=== PATIENT | female | born 1965 | race Caucasian/White ===

== ENCOUNTER 2020-06-29 14:55 | Outpatient (REF) | payer MEDICAID, SELFPAY | END 2020-06-29 14:56 | disposition home or self-care (01) | LOC: HO.LAB 14:55 | PROVIDERS: PCP Internal Medicine; Visit Provider Internal Medicine | DX: Z20.828 Contact with and (suspected) exposure to other viral communicable diseases (principal) | CPT/HCPCS: C9803; U0003 ==

== ENCOUNTER 2020-09-24 17:56 | Emergency (ER) | payer MEDICAID, SELFPAY ==
--- NOTE | 2020-09-24 09:11 | ECG_ITS ---
Test Reason : CHEST WALL PAIN Blood Pressure : / mmHG Vent. Rate : 080 BPM Atrial Rate : 080 BPM P-R Int : 140 ms QRS Dur : 062 ms QT Int : 338 ms P-R-T Axes : 037 051 060 degrees QTc Int : 389 ms Normal sinus rhythm Normal ECG No previous ECGs available Referred By: Pavel Palafox Electronically Signed By:EMILY CUEVAS MD
--- NOTE | 2020-09-24 18:34 | ED.CHESTPAIN ---
HPI - Chest Pain General Chief Complaint: General Medical Stated Complaint: Chest wall pain Time Seen by Provider: 09/24/20 18:34 Source: patient Mode of arrival: ambulatory Limitations: no limitations History of Present Illness HPI narrative: Patient nonsmoker no known risk factor for coronary artery disease noticed pain on the right side of the chest and the upper back for last 2 days after work took ibuprofen and felt better. Pain gets worse on movements and taking deep breaths. No shortness of breath no fever no chills no cough patient does have some some cold symptoms for last few days MD complaint: chest pain Onset (ago): day(s) (2) Timing of current episode: constant Prior episodes: No Onset: during rest Pain location: right chest Pain radiation: none Severity: mild Quality: aching Relieving factors: nothing Exacerbating factors: palpation and movement Related Data Previous Rx's Medication Instructions Recorded tramadol 50 mg PO Q6H PRN #20 tab 09/24/20 Allergies Allergy/AdvReac Type Severity Reaction Status Date / Time No Known Allergies Allergy Verified 09/24/20 18:45 [No Known Allergies*] Review of Systems Review of Systems: Constitutional : No Weight loss, No Fever, No Chills ENT/Mouth : No sore throat, No Rhinorrhea Eyes: No Eye Pain, No Swelling Cardiovascular : +Chest Pain, no palpitations Respiratory : No Cough, No Sputum, no shortness of breath Gastrointestinal : no Nausea, No Vomiting, No Diarrhea, No abdominal Pain, no black stools Genitourinary : No Dysuria, No Urinary Frequency Musculoskeletal : No joint pain, No Myalgias, No Joint Swelling Skin : No Skin Lesions, No rash Neuro : No Weakness, No Numbness, No Dizziness, No Headache Psych : No Anxiety/Panic, No Depression Heme/Lymph: No Bruising, No Lymphadenopathy Endocrine : No Polyuria, No Polydipsia All other systems reviewed and are negative [facility] Past Medical History Surgical History History of Social History Social History Alcohol intake: never Smoking Status: Never smoker Use of substances other than those prescribed or required for medical reasons: No Advance Directives: No Advance Directives Information Provided: Yes Physical Exam Vital Signs: Vital Signs: Last Vital Signs Temp 97.9 F 01/31/21 18:40 Pulse 95 09/24/20 18:40 Resp 18 09/24/20 18:40 BP 117/89 09/24/20 18:40 Pulse Ox 100 09/24/20 18:40 Body Mass Index 21.9 Appearance: Alert. Oriented X3. No acute distress. Eyes: Pupils equal, round and reactive to light. ENT: Pharynx normal. Neck: Normal inspection. Neck supple. CVS: Normal heart rate and rhythm. Pulses normal. Respiratory: No respiratory distress. Breath sounds normal. Tenderness right upper chest and right upper back on palpation Abdomen: Soft and nontender. Bowel sounds are present, no mass palpable, no CVA tenderness Skin: Skin warm and dry. Normal skin color. Normal skin turgor. Extremities: No lower extremity edema. No calf tenderness Neuro: Oriented X 3. No motor deficit. No sensory deficit. Course Course Course Narrative: Patient with atypical chest pain chest x-ray negative COVID negative felt better after Toradol discharge patient home on tramadol for pain likely from musculoskeletal MDM - Chest Pain Differential Diagnosis Differential diagnosis: Likely atypical chest pain Lab Data Labs: Lab Results 09/24/20 Range/Units 18:52 COVID-19 ([facility]) Negative (Negative) COVID-19 Clin Com See Note ECG Data ECG #1: Attestation: I personally reviewed and interpreted this ECG as follows: Interpretation: Normal sinus rhythm heart rate 80 beats per minute normal intervals normal axis no acute ST T wave changes impression normal EKG Discharge Plan Discharge Clinical Impression: Musculoskeletal chest pain Patient Disposition: Home, Self-Care Instructions: Musculoskeletal Pain (ED) Additional Instructions: Take pain medicine as advised. Follow with PCP if pain continues or radiates to the left side Prescriptions: New tramadol 50 mg tablet 50 mg PO Q6H PRN (Reason: pain) Qty: 20 RF: 0
[2020-09-24 18:40] VITALS: BP 117/89; PULSE 95; RESP 18; TEMP 36.6; O2SAT 100; BMI 21.9
--- NOTE | 2020-09-24 18:43 | XR_ITS ---
EXAMINATION: XR CHEST CLINICAL INFORMATION: Right chest pain COMPARISON: None TECHNIQUE: Frontal view of the chest was obtained. FINDINGS: The cardiomediastinal silhouette is within normal limits. The lungs are well expanded. There is no focal consolidation, edema, or effusion. No pneumothorax. No acute osseous abnormality. XR/XR chest 1V IMPRESSION: No evidence of acute process.
[2020-09-24] MEDS: Ketorolac Tromethamine 60 MG/2 ML VIAL IM (18:50)
--- NOTE | 2020-09-24 19:00 | PC.NURSE ---
ekg performed in triage, pt medicated for pain, covid swab performed, cxr performed, panel monitor applied, will continue to monitor.
[2020-09-24 19:14] LABS: COVID-19 Test Negative (Negative)
[2020-09-24 20:02] VITALS: BP 125/69; PULSE 94; RESP 18; TEMP 36.7; O2SAT 98
== END 2020-09-24 20:04 | disposition home or self-care (01) ==
PROVIDERS: Emergency Provider Internal Medicine; PCP Internal Medicine
DX: R07.89 Other chest pain (principal); Z20.822 Contact with and (suspected) exposure to COVID-19; Z79.899 Other long term (current) drug therapy
CPT/HCPCS: 36415; 71045; 87635; 93005; 96372; 99284; J1885

== ENCOUNTER 2021-07-20 12:42 | Emergency (ER) | payer MEDICAID, SELFPAY ==
--- NOTE | ~2021-07-20 | XR_ITS ---
EXAMINATION: RIGHT SHOULDER AND RIGHT RIBS AND CHEST. CLINICAL INFORMATION: Fall. Pain. COMPARISON: None TECHNIQUE: Right shoulder 4 views. Right RIBS and chest 2 views. FINDINGS: CHEST AND RIGHT RIBS: The lungs are hyperinflated but clear. Heart size and pulmonary vascularity Multiple views right ribs reveal no visible right rib fracture or bony abnormality. RIGHT SHOULDER: There is no visible acute fracture, dislocation or subluxation. No bony abnormality. The soft tissues are normal. XR/XR ribs RT min 3V w CXR1V IMPRESSION: Unremarkable chest and right rib exam. Unremarkable right shoulder exam.
--- NOTE | ~2021-07-20 | XR_ITS ---
EXAMINATION: RIGHT SHOULDER AND RIGHT RIBS AND CHEST. CLINICAL INFORMATION: Fall. Pain. COMPARISON: None TECHNIQUE: Right shoulder 4 views. Right RIBS and chest 2 views. FINDINGS: CHEST AND RIGHT RIBS: The lungs are hyperinflated but clear. Heart size and pulmonary vascularity Multiple views right ribs reveal no visible right rib fracture or bony abnormality. RIGHT SHOULDER: There is no visible acute fracture, dislocation or subluxation. No bony abnormality. The soft tissues are normal. XR/XR shoulder RT min 2V IMPRESSION: Unremarkable chest and right rib exam. Unremarkable right shoulder exam.
[2021-07-20 13:12] VITALS: BP 108/76; PULSE 89; RESP 17; TEMP 36.6; O2SAT 99; BMI 21.4
--- NOTE | 2021-07-20 14:20 | ED_ITS ---
HPI - Fall General Chief Complaint: Fall Stated Complaint: fall - chest/head injury Time Seen by Provider: 07/20/21 14:17 Source: patient Mode of arrival: ambulatory Limitations: no limitations History of Present Illness HPI Narrative: 55-year-old female previously healthy here with complaints of right-sided chest wall pain and shoulder pain after a fall on Friday. Patient tells me she slipped and fell falling forward striking her right chest on the ground. She also believes she may have hit her head but there is no loss of consciousness. She also struck her right knee. Patient tells me her primary concern is her chest wall pain. She denies any headache, vision changes, nausea, vomiting. She tells me she is able to ambulate on the knee with no difficulty. No AC therapy no shortness of breath or cough or fever Related Data Previous Rx's Medication Instructions Recorded tramadol 50 mg tablet 50 mg PO Q6H PRN #20 tab 09/24/20 cyclobenzaprine 10 mg tablet 10 mg PO TID PRN #15 tab 07/20/21 naproxen 500 mg tablet,delayed 500 mg PO BID PRN #15 tab 07/20/21 release Allergies Allergy/AdvReac Type Severity Reaction Status Date / Time No Known Allergies Allergy Verified 09/24/20 18:45 [No Known Allergies*] Review of Systems Review of Systems: Yes all other systems are reviewed and are negative Constitutional: Constitutional: Reports no additional constitutional complaints, Denies body ache(s), Denies chills, Denies fever(s), Denies headache(s) and Denies weakness Eyes: Eyes: Reports no additional eye complaints and Denies change in vision ENT: Reports system reviewed and no additional complaints, except as documented, Denies dizziness, Denies headache(s), Denies nasal congestion, Denies nasal discharge and Denies neck pain Cardiovascular: Cardiovascular: Reports no additional cardiovascular complaints, Reports chest pain, Denies leg edema and Denies dyspnea Respiratory: Respiratory: Reports no additional respiratory complaints, Denies cough and Denies dyspnea Gastrointestinal: Gastrointestinal: Reports no additional gastrointestinal complaints, Denies abdominal pain, Denies diarrhea, Denies nausea and Denies vomiting Genitourinary: Genitourinary: Reports no additional female genitourinary complaints and Denies urinary incontinence Musculoskeletal: Musculoskeletal: Reports no additional musculoskeletal complaints, Denies back pain, Denies arthralgias, Denies joint swelling, Denies neck pain, Denies numbness and Denies tingling Integumentary/Breasts: Skin/Breast: Reports system reviewed and no additional complaints, except as docu and Denies rash Neurologic: Reports system reviewed and no additional complaints, except as documented, Denies Abnormal speech present, Denies dizziness, Denies headache(s), Denies numbness, Denies tingling and Denies weakness PMF Past Medical History Attestation statement: The following information was validated with the patient. Source: old records reviewed and nursing notes reviewed Surgical History History of Social History Social History Alcohol intake: never Advance Directives: No Advance Directives Information Provided: Yes Patient : No Physical Exam Vital Signs: Vital Signs: Last Vital Signs Temp 98 F 07/20/21 13:12 Pulse 89 07/20/21 13:12 Resp 17 07/20/21 13:12 BP 108/76 07/20/21 13:12 Pulse Ox 99 07/20/21 13:12 Body Mass Index 21.4 Const: General: cooperative, healthy appearing, comfortable and no acute distress Orientation/consciousness: patient oriented x3 Limitations: no limitations HENMT: Head: Yes normal to inspection Ears: hearing grossly normal bilaterally and TM's normal bilaterally General nose exam: Normal external nose present Face and sinus: Yes normal facial exam Mouth: Normal oral and palatal mucosa present Throat: Yes posterior oropharynx normal, Yes tonsils normal and Yes uvula midline Eyes: General: appearance normal, both eyes and all related structures Pupils: Equal, round and reactive pupils present Neck: Neck: Yes normal visual inspection, Yes full ROM, Yes no lymphadenopathy and Yes no meningeal signs Chest: Chest palpation & inspection: tenderness ( right chest wall and lateral ribs) Resp: Effort & Inspection: normal respiratory effort Auscultation: clear to auscultation bilaterally Cardio: Rate: regular rate Rhythm: regular rhythm Peripheral pulses: Peripheral pulses 2+ throughout GI: Inspection: Yes normal to inspection Palpation (GI): Soft to palpation and nontender Auscultation: normal bowel sounds Back/Spine/Pelvis: Thoracic/Lumbar Spine: thoracic and lumbar spine normal to inspection Skin: General skin exam: no rashes or lesions noted Neuro: General: patient oriented x3, no meningeal signs, no focal motor deficits and normal sensation to monofilament Cranial nerves: Yes CN's II-XII intact bilaterally, Yes Equal, round and reactive pupils present, Yes Bilaterally intact EOM present, Yes Nystagmus not present, Yes Normal facial strength present and Yes Midline tongue present Cognition (Neuro): normal cognition Speech: No Abnormal speech present Gait exam (Neuro): Normal gait present Motor exam (neuro): 5/5 motor strength present throughout Sensory Exam: Normal double simultaneous stimulation for sensation Deep tendon reflexes (DTR's): Right patellar reflex intensity grade: 2+ and Left patellar reflex intensity grade: 2+ Extrem: Other: mild tenderness the right anterior shoulder with full range of motion and no deformity General: Yes normal to inspection and Yes full ROM Course Course Course Narrative: right shoulder and chest wall pain after a mechanical fall on Friday. Will check x-rays. There was a head strike also but there was no loss of consciousness and there was no reports of headache, vision changes or v omiting within normal neurological exam. Imaging deferred 1515- x-ray show no bony abnormality. Likely contusion. Reviewed worrisome signs and symptoms of when to return to the emergency department. Comfortable discharge home. MDM - Fall Medical Records Attestation: I reviewed the patient's medical records. Lab Data Attestation: I reviewed the patient's lab results. Imaging Data Chest x-ray: Attestation: I personally reviewed and interpreted this imaging study as follows: Radiologist's impression: FINDINGS: CHEST AND RIGHT RIBS: The lungs are hyperinflated but clear. Heart size and pulmonary vascularity Multiple views right ribs reveal no visible right rib fracture or bony abnormality. RIGHT SHOULDER: There is no visible acute fracture, dislocation or subluxation. No bony abnormality. The soft tissues are normal. XR/XR ribs RT min 3V w CXR1V IMPRESSION: Unremarkable chest and right rib exam. ? Unremarkable right shoulder exam.? Discharge Plan Discharge Clinical Impression: Chest wall contusion, Contusion of knee, Contusion of head Patient Disposition: Home, Self-Care Instructions: Contusion in Adults (ED), Rib Contusion (ED), Cold Compress or Soak (ED) Additional Instructions: x-ray show no broken bones ice to the area gentle stretching no heavy lifting or bending Prescriptions: New naproxen 500 mg tablet,delayed release (DR/EC) 500 mg PO BID PRN (Reason: pain) Qty: 15 RF: 0 cyclobenzaprine 10 mg tablet 10 mg PO TID PRN (Reason: muscle spasm) Qty: 15 RF: 0 No Action tramadol 50 mg tablet 50 mg PO Q6H PRN (Reason: pain) Qty: 20 RF: 0 Referrals: Teresa Hunt MD [Primary Care Provider] - 2 days Interventions: ED Discharge Assessment Last Done: 07/20/21 14:48 Discharge Date/Time: 07/20/21 14:48
== END 2021-07-20 14:48 | disposition home or self-care (01) ==
PROVIDERS: Emergency Provider Emergency Medicine; PCP Internal Medicine
DX: S20.211A Contusion of right front wall of thorax, initial encounter (principal); S00.93XA Contusion of unspecified part of head, initial encounter; S80.01XA Contusion of right knee, initial encounter; W01.198A Fall on same level from slipping, tripping and stumbling with subsequent striking against other object, initial encounter; Y93.9 Activity, unspecified; Y92.410 Unspecified street and highway as the place of occurrence of the external cause; Y99.9 Unspecified external cause status
CPT/HCPCS: 71101; 73030; 99283

== ENCOUNTER 2022-09-09 10:07 | Outpatient (REF) | payer MEDICAID, SELFPAY ==
--- NOTE | ~2022-09-09 | MM_ITS ---
EXAMINATION: MM SCREENING DIGITAL BREAST TOMOSYNTHESIS, BILATERAL CLINICAL INFORMATION: Screening. Asymptomatic. The lifetime risk of breast cancer based on the Tyrer-Cuzick Model is 6%. COMPARISON: Mammography: 09/01/2019, 08/24/2018, 02/04/2017 TECHNIQUE: Digital breast tomosynthesis is performed in both the craniocaudal and mediolateral oblique views along with computer-aided detection (CAD). Synthesized 2D images are generated from the tomosynthesis. FINDINGS: The breasts are heterogeneously dense, which may obscure small masses (ACR BI-RADS breast composition Category c). Parenchymal pattern is similar to prior studies. No developing density or architectural abnormality. There are no significant masses, abnormal calcifications, or other abnormalities. There are dermal calcifications again noted anterior left breast. The axilla and skin contours are unremarkable. MM/MM tomosynthesis screening BI IMPRESSION: No mammographic evidence of malignancy. ASSESSMENT: BI-RADS 2: Benign RECOMMENDATION: Routine annual mammography screening. This patient's information was entered into a reminder system with a target due date for their next mammogram.
== END 2022-09-09 10:08 | disposition home or self-care (01) ==
LOC: HO.MAMMO 10:07
PROVIDERS: PCP Internal Medicine; Visit Provider Internal Medicine
DX: Z12.31 Encounter for screening mammogram for malignant neoplasm of breast (principal)
CPT/HCPCS: 77063; 77067

== ENCOUNTER → 2022-12-12 14:31 | Outpatient (BNVA) | payer MEDICAID, SELFPAY | PROVIDERS: PCP Internal Medicine; Visit Provider Obstetrics & Gynecology ==

== ENCOUNTER → 2023-02-13 12:53 | Outpatient (BNVA) | payer MEDICAID, SELFPAY | PROVIDERS: PCP Internal Medicine; Visit Provider Obstetrics & Gynecology | DX: R87.618 Other abnormal cytological findings on specimens from cervix uteri (principal); Q51.28 Other and unspecified doubling of uterus | CPT/HCPCS: 99212 ==

== ENCOUNTER 2023-04-14 11:16 | Outpatient (REF) | payer MEDICAID, SELFPAY ==
--- NOTE | ~2023-04-14 | MR_ITS ---
EXAMINATION: MR PELVIS WITHOUT AND WITH CONTRAST CLINICAL INFORMATION: Uterus didelphys. COMPARISON: None available. TECHNIQUE: Sagittal, axial and coronal sequences. FINDINGS: The uterus is anteverted and retroflexed and measures 9 x 3 x 3.6 cm in dimension. There are 2 uterine horns suggestive of a septate-type uterus. The endometrium does not appear thickened, measuring 6 mm on the right and 5 mm on the left. The junctional zone does not appear thickened. There is a 7 x 10 mm low signal T2 lesion in the posterior uterine body likely to the left of midline. This is not appreciated on all sequences but may represent a small fibroid. No other focal uterine lesion is seen. The cervix is normal-appearing. The ovaries are not well visualized. No adnexal mass. No ascites or adenopathy. The bladder is not optimally distended but appears unremarkable. There is a large amount of stool in the colon questionable for constipation. There is signal loss/artifact in the right inguinal region suggestive of previous surgery. MR/MR pelvis wo/w con IMPRESSION: Septate-type uterus. Question small posterior uterine body fibroid.
[2023-04-14] MEDS: gadobutroL 7.5 ML VIAL IVPUSH (12:29)
== END 2023-04-14 11:17 | disposition home or self-care (01) ==
LOC: HO.MRI 11:16
PROVIDERS: PCP Internal Medicine; Visit Provider Obstetrics & Gynecology
DX: Q51.28 Other and unspecified doubling of uterus (principal)
CPT/HCPCS: 72197; A9585

== ENCOUNTER 2023-04-30 10:56 | Outpatient (AMB) | payer MEDICAID, SELFPAY ==
[2023-04-30 11:04] VITALS: BP 94/62; BMI 20.6
--- NOTE | 2023-04-30 11:04 | MHC.OFFVIS ---
Intake Vital Signs 04/30/23 11:04 Height 5 ft 4 in Weight 120 lb BMI 20.6 BP 94/62 Intake Visit Reasons: MRI Follow up Ditch Cleaner Required: Yes Ditch Cleaner Language: Patient Relations Liaison Name: Basilia Vergara Information Interpreted: non-clinical & clinical Rim Roller Setter: Rim Roller Setter Present (Basilia) Allergies No Known Allergies [No Known Allergies*] Allergy (Verified 04/30/23 11:05) Is last menstrual period known: No HPI HPI Comments History of Present Illness Details Presenting for a follow-up MRI of the pelvis which showed the following: The uterus is anteverted and retroflexed and measures 9 x 3 x 3.6 cm in dimension. There are 2 uterine horns suggestive of a septate-type uterus. The endometrium does not appear thickened, measuring 6 mm on the right and 5 mm on the left. The junctional zone does not appear thickened. There is a 7 x 10 mm low signal T2 lesion in the posterior uterine body likely to the left of midline. This is not appreciated on all sequences but may represent a small fibroid. No other focal uterine lesion is seen. The cervix is normal-appearing. The ovaries are not well visualized. No adnexal mass. No ascites or adenopathy. The bladder is not optimally distended but appears unremarkable. There is a large amount of stool in the colon questionable for constipation. There is signal loss/artifact in the right inguinal region suggestive of previous surgery. Results from [facility] for the 2 Pap smears/HPV were received , the 1st co testing is negative, the other one is negative with endometrial cells present on Pap smear [facility] Surgical History History of Hx of tubal ligation Social History Alcohol intake: never Female Reproductive History Menstrual Age of Menarche: 17 control method: permanent sterilization Date of last pap smear: 06/26/16 (negative) Review of Systems Const All systems reviewed & are unremarkable except as noted in HPI and below Reports as per HPI and Reports no additional complaints GI Reports no additional complaints Reports no additional complaints Physical Exam Vital Signs: Last Vital Signs BP 94/62 04/30/23 11:04 BMI result Body Mass Index 20.6 Assessment & Plan Assessment & Plan (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 The patient would like to schedule endometrial biopsy in a week. Instructions given the patient to schedule appointment jody. All questions answered, the patient verbalized understanding. (3) Uterine myoma: Code(s): D25.9 - Leiomyoma of uterus, unspecified Plan Discussed with the patient the findings on pelvic MRI & the risk of myosarcoma; discussed with the patient the options of treatment including expectant management versus hysterectomy; the pros and cons, risks benefits of each approach were discussed with the patient including the fact that in cases of myosarcoma, surgical treatment can lead to early diagnosis and positively affects the prognosis; after further discussion, the patient decided to proceed with expectant management. Will repeat pelvic ultrasound periodically. Instructions given to patient to call in case any of the following occurs: pressure symptoms, abnormal uterine bleeding, pelvic pain; and to schedule a future office follow-up appointment for reassessment and to order a repeat ultrasound . All questions answered, the patient verbalized understanding and agreed with the plan . Coding Level of Care Code Est Pt Level 3 (43502) Diagnoses Uterus didelphys Q51.28 Unexplained endometrial cells on cervical cytology R87.618 Uterine myoma D25.9
== END 2023-04-30 12:32 | disposition home or self-care (01) ==
PROVIDERS: PCP Internal Medicine; Visit Provider Obstetrics & Gynecology
DX: Q51.28 Other and unspecified doubling of uterus (principal); R87.618 Other abnormal cytological findings on specimens from cervix uteri; D25.9 Leiomyoma of uterus, unspecified
CPT/HCPCS: 99213

== ENCOUNTER → 2023-04-30 10:56 | Outpatient (BNVA) | payer MEDICAID, SELFPAY | PROVIDERS: PCP Internal Medicine; Visit Provider Obstetrics & Gynecology | DX: R87.618 Other abnormal cytological findings on specimens from cervix uteri (principal); D25.9 Leiomyoma of uterus, unspecified; Q51.28 Other and unspecified doubling of uterus | CPT/HCPCS: 99212 ==

== ENCOUNTER 2023-05-12 07:43 | Outpatient (AMB) | payer MEDICAID, SELFPAY ==
[2023-05-12 07:47] VITALS: BMI 20.4
--- NOTE | 2023-05-12 07:47 | MHC.OFFVIS ---
Intake Vital Signs 05/12/23 07:47 Height 5 ft 4 in Weight 119 lb 0.794 oz BMI 20.4 Intake Visit Reasons: EMB Food And Beverage Intern Required: Yes Food And Beverage Intern Language: Home Hospice Rn Name: Basilia MCKEON Information Interpreted: non-clinical & clinical Pearl Peller: Pearl Peller Present (Basilia MCKEON) Accompanied by: Self / Same As Patient Allergies No Known Allergies [No Known Allergies*] Allergy (Verified 05/12/23 07:47) Post menopausal: Yes HPI HPI Comments History of Present Illness Details The patient was referred from [facility] for endometrial cells on Pap smear, in [place]/HPV negative. On pelvic exam 2 ? rudimentary cervices were identified Pap smear taken from each one of them , Pap/HPV were negative from 1 of the cervices and the other Pap/HPV was negative with endometrial cells present. MRI was done showed the following: The uterus is anteverted and retroflexed and measures 9 x 3 x 3.6 cm in dimension. There are 2 uterine horns suggestive of a septate-type uterus. The endometrium does not appear thickened, measuring 6 mm on the right and 5 mm on the left. The junctional zone does not appear thickened. There is a 7 x 10 mm low signal T2 lesion in the posterior uterine body likely to the left of midline. This is not appreciated on all sequences but may represent a small fibroid. No other focal uterine lesion is seen. The cervix is normal-appearing. The ovaries are not well visualized. No adnexal mass. No ascites or adenopathy. The bladder is not optimally distended but appears unremarkable. There is a large amount of stool in the colon questionable for constipation. There is signal loss/artifact in the right inguinal region suggestive of previous surgery. [facility] Surgical History History of Hx of tubal ligation Social History Alcohol intake: never Female Reproductive History Menstrual Age of Menarche: 17 Physical Exam Vital Signs: BMI result Body Mass Index 20.4 Speculum Exam - Vagina: other (1small cervix on the L side & smaller tissue possibly 2nd cx on the R side) Bimanual exam- vagina & uterus: uterine size normal Assessment & Plan Assessment & Plan (1) Unexplained endometrial cells on cervical cytology: Code(s): R87.618 - Other abnormal cytological findings on specimens from cervix uteri Plan: Discussed with the patient the finding on pelvic exam and on pelvic MRI showing septate uterus with 2 own, pelvic exam showing ? 1 or 2 abnormal looking cervices. Endometrial cells on Pap smear in menopause is indication for endometrial biopsy to rule out endometrial pathology including endometrial hyperplasia and/or malignancy, since the cervical exam is abnormal with rudimentary tissues at the vaginal, EMB was attempted but was not successful given the abnormal anatomy. Will refer the patient to [facility] for further management. All questions answered the patient verbalized understanding. Instructed the patient to call our office back in case a referral appointment is not scheduled, missed or canceled so that we will assist on rescheduling another appointment, the patient verbalized understanding agreed with the plan. Coding Level of Care Code Est Pt Level 3 (85397) Diagnoses Unexplained endometrial cells on cervical cytology R87.618
== END 2023-05-12 08:16 | disposition home or self-care (01) ==
PROVIDERS: PCP Internal Medicine; Visit Provider Obstetrics & Gynecology
DX: R87.618 Other abnormal cytological findings on specimens from cervix uteri (principal)
CPT/HCPCS: 99213

== ENCOUNTER → 2023-05-12 07:43 | Outpatient (BNVA) | payer MEDICAID, SELFPAY | PROVIDERS: PCP Internal Medicine; Visit Provider Obstetrics & Gynecology | DX: R87.618 Other abnormal cytological findings on specimens from cervix uteri (principal) | CPT/HCPCS: 99212 ==

== ENCOUNTER 2023-09-15 09:57 | Outpatient (REF) | payer MEDICAID, SELFPAY ==
--- NOTE | ~2023-09-15 | MM_ITS ---
EXAMINATION: MM SCREENING DIGITAL BREAST TOMOSYNTHESIS, BILATERAL CLINICAL INFORMATION: Screening. Asymptomatic. COMPARISON: Mammography: This study is compared with prior exams dating back to 2017. TECHNIQUE: Digital breast tomosynthesis is performed in both the craniocaudal and mediolateral oblique views along with computer-aided detection (CAD). Synthesized 2D images are generated from the tomosynthesis. FINDINGS: The breasts are heterogeneously dense, which may obscure small masses (ACR BI-RADS breast composition Category c). In the lateral aspect the deep third of the left breast, there is an asymmetry which warrants additional mammographic and targeted sonographic imaging. Please note that a laterally exaggerated craniocaudal view of the left breast should be added to the diagnostic imaging protocol. In the right breast, there are no significant masses, abnormal calcifications, or other abnormalities. MM/MM tomosynthesis screening BI IMPRESSION: Left breast asymmetry warrants additional mammographic and targeted sonographic evaluation. No mammographic signs of malignancy right breast. ASSESSMENT: BI-RADS BI-RADS 0 - Incomplete: Needs additional Imaging. RECOMMENDATION: 1. Additional views of the left breast 2. Targeted ultrasound if warranted after review of the additional views. 3. Radiology department staff will contact the patient for additional imaging. Additional Imaging required This examination should not preclude the clinical evaluation of a suspicious palpable abnormality. This patient's information was entered into a reminder system with a target due date for their next mammogram.
== END 2023-09-15 09:58 | disposition home or self-care (01) ==
LOC: HO.MAMMO 09:57
PROVIDERS: PCP Internal Medicine; Visit Provider Internal Medicine
DX: Z12.31 Encounter for screening mammogram for malignant neoplasm of breast (principal)
CPT/HCPCS: 77063; 77067

== ENCOUNTER → 2023-09-15 10:00 | Outpatient (BNV) | payer MEDICAID, SELFPAY | PROVIDERS: PCP Internal Medicine; Visit Provider Radiology Diagnostic Radiology | DX: Z12.31 Encounter for screening mammogram for malignant neoplasm of breast (principal) | CPT/HCPCS: 77063; 77067 ==

== ENCOUNTER 2023-10-14 10:01 | Outpatient (REF) | payer MEDICAID, SELFPAY ==
--- NOTE | ~2023-10-14 | MM_ITS ---
EXAMINATION: MM DIAGNOSTIC DIGITAL BREAST TOMOSYNTHESIS, LEFT CLINICAL INFORMATION: The patient is seen for further evaluation of a low laterally located asymmetry in the left breast is noted on screening mammography from 09/15/2023. COMPARISON: Mammography: This study is compared with prior exams dating back to 2017. TECHNIQUE: Digital breast tomosynthesis is performed in both the craniocaudal and mediolateral oblique views along with computer-aided detection (CAD). Synthesized 2D images are generated from the tomosynthesis. A full lateral view of the left breast, a laterally exaggerated CC view and CC spot compression views also obtained FINDINGS: There are scattered areas of fibroglandular density (ACR BI-RADS breast composition Category b). There are no significant masses, abnormal calcifications, or other abnormalities. The asymmetry from the screening mammogram is due to overlap of normal glandular tissue. MM/MM tomosynthesis diagnostic LT IMPRESSION: No mammographic evidence of malignancy. ASSESSMENT: BI-RADS BI-RADS 1 - Negative RECOMMENDATION: 1 year F/U Results were provided to the patient at time of visit by the technologist. This patient's information was entered into a reminder system with a target due date for their next mammogram.
== END 2023-10-14 10:02 | disposition home or self-care (01) ==
LOC: HO.MAMMO 10:01
PROVIDERS: PCP Internal Medicine; Visit Provider Internal Medicine
DX: N64.89 Other specified disorders of breast (principal)
CPT/HCPCS: 77061; 77065

== ENCOUNTER → 2023-10-14 10:30 | Outpatient (BNV) | payer MEDICAID, SELFPAY | PROVIDERS: PCP Internal Medicine; Visit Provider Radiology Diagnostic Radiology | DX: R92.322 Mammographic fibroglandular density, left breast (principal) | CPT/HCPCS: 77061; 77065 ==

== ENCOUNTER 2024-09-20 09:49 | Outpatient (REF) | payer OTHER, SELFPAY ==
--- OUTSIDE RECORDS SUMMARY | 2024-09-20 14:19 | XMS_ITS | Encounter Summary ---
Author Organization [employer] [facility] Address [address] [place] [address] Care Team Providers Care Circulation Crew Leader Name Role Phone Teresa Hunt MD Primary Care Provider [phone] Encounter Details Date Type Department Care Team (Late st Contact Info) Description 09/23/2022 Orders Only [facility] [address] [place] [address] Vicki Martinez RN [address] [place] [address] Social History Tobacco Use Types Packs/Day Years Used Date Smoking Tobacco: Never Assessed Comments Unknown Sex and Gender Information Value Date Recorded Sex Assigned at Female 06/24/2022 10:20 AM EDT Legal Sex Female 10:20 AM EDT Gender Identity Female 06/24/2022 10:20 AM EDT Sexual Orientation Choose not to disclose 2021 10:20 AM EDT COVID-19 Exposure Response Date Recorded In the last 10 days, have wili ferreira been in contact with someone who was confirmed or suspected to have Coronavirus/COVID-19? No / Unsure 09/10/2022 2:01 PM EST documented as of this encounter Plan of Treatment Not on file documented as of this encounter Visit Diagnoses Not on filedocumented in this encounter Care Teams Circulation Crew Leader Relationship Specialty Start Date End Date Teresa Hunt MD [address] [place] [address] PCP - General Internal Medicine 08/25/18 documented as of this encounter
--- OUTSIDE RECORDS SUMMARY | 2024-09-20 14:19 | XMS_ITS | Clinical Summary ---
Author Organization [employer] Address [address] [place] [address] Care Team Providers Care Quality Lab Technician Name Role Phone Teresa Hunt MD Primary Care Provider Allergies No known active allergies Medications pseudoephedrine (Sudafed) 30 MG tablet Take 1 tablet (30 mg) by mouth every 4 (four) hours if needed for congestion for up to 10 days. 30 tablet 4 Active fluticasone (Flonase) 50 MCG/ACT nasal spray Administer 1 spray into each nostril Once per day. 16 g 4 06/03/20 25 Active ibuprofen 600 MG tablet Take 1 tab orally tid prn pain or fevers 90 tablet 4 Active Social History Tobacco Use Types Packs/Day Years Used Date Smoking Tobacco: Never Assessed Comments Unknown Sex and Gender Information Value Date Recorded Sex Assigned at Female 06/24/2022 10:20 AM EDT Legal Sex Female 10:20 AM EDT Gender Identity Female 06/24/2022 10:20 AM EDT Sexual Orientation Choose not to disclose 2021 10:20 AM EDT Last Filed Vital Signs Vital Sign Reading Time Taken Comments Blood Pressure 111/71 06/03/2024 9:46 AM EDT Pulse 70 06/03/2024 9:46 AM EDT Temperature 36.7 ??C (98 ??F) 06/03/2024 9:46 AM EDT Respiratory Rate 16 06/03/2024 9:46 AM EDT Oxygen Saturation 99% 06/03/2024 9:46 AM EDT Inhaled Oxygen Concentration - - Weight 55.8 kg (123 lb) 06/03/2024 9:46 AM EDT Height 162.6 cm (5' 4 ) 06/03/2024 9:46 AM EDT Body Mass Index 21.11 06/03/2024 9:46 AM EDT Plan of Treatment Health Maintenance Due Date Last Done Comments CT Colonography 1967 Colonoscopy 1967 Colorectal Cancer Screening 1967 Depression Screening 1967 FIT DNA/Cologuard 1967 FIT 1967 FOBT 1967 HIV Screening 1967 SDOH Screening 1967 Sigmoidoscopy 1967 Alcohol/Substance Use Screening 1979 Tobacco Screening 1979 Hepatitis C Screening 10/26/1985 Zoster Vaccines (1 of 2) 10/26/2017 DTaP/Tdap/Td Vaccines (2 - Td or Tdap) 02/15/2023 02/15/2013 COVID-19 Vaccine ( - season) 2024 09/04/2021, 01/02/2021, 12/12/2020 Influenza Vaccine (#1) 2024 , 05/23/2014, 05/06/2013 Pap Smear 09/10/2025 09/10/2022, 08/25, 06/25/2016 Mammogram 10/14/2025 10/14/2023, 08/26, 09/09/2022, Additional history exists Cervical Cancer Screening 09/10/2027 HPV/Cotest 09/10/2027 09/10/2022, 08/25, 06/25/2016 RSV Patients and Patients Aged 60 years or older (1 - 1-dose 75+ series) 10/26/2042 Hepatitis B Vaccines Completed 06/25/2016, 01/17/2016, 12/18/2015 HIB Vaccines Aged Out No longer eligi ble based on patient's age to complete this topic HPV Vaccines Aged Out No longer eligi ble based on patient's age to complete this topic Hepatitis A Vaccines Aged Out No long er eligible based on patient's age to complete this topic IPV Vaccines Aged Out No longer eligi ble based on patient's age to complete this topic Meningococcal Vaccine Aged Out No glenroy james eligible based on patient's age to complete this topic Pneumococcal Vaccine: Pediatrics (0 to 5 Years) and At-Risk Patients (6 to 64 Years) Aged Out No longer eligible based on patient's age to complete this topic RSV under 20 months Aged Out No longe r eligible based on patient's age to complete this topic Rotavirus Vaccines Aged Out No longer eligible based on patient's age to complete this topic Procedures Procedure Name Priority Date/Time Associated Diagnosis Comments BI MAMMOGRAM DIAGNOSTIC TOMOSYNTHESIS LEFT Routine 10/14/2023 10:26 AM EST THINPREP PAP AND HPV MRNA E6/E7 Routine 09/10/2022 12:00 AM EST from Last 3 Months or Most Recently Relevant to Health Maintenance Results * BI Mammogram Diagnostic Tomosynthesis Left (10/14/2023 10:26 AM EST) Anatomical Region Laterality Modality Breast Left Mammography 10/14/2023 10:2 6 AM EST Narrative 10/17/2023 2:27 PM EST ? [facility] [place] ? [address] ?[place] [address] ? Mammography Report ? Signed ? Patient: Amira Craig ?MR#: ?? [id number] ? : 1965 ?Acct:[id number] ? Age/Sex: 57 / F ?ADM Date: 02/20/24 ? Loc: HO.MAMMO ? Attending Dr: Teresa Hunt MD ? Ordering Physician: Teresa Hunt MD ?Results: 1 ?? Negative ? Date of Service: 10/14/23 ?Follow Up: 1 Year From Orig ?? inal Mammogram ? Procedure(s): MM tomosynthesis diagnostic LT ?? Accession Number(s): [id number] ? cc: Teresa Hunt MD ? EXAMINATION: ?? MM DIAGNOSTIC DIGITAL BREAST TOMOSYNTHESIS, LEFT ? CLINICAL INFORMATION: ? The patient is seen for further evaluation of a low laterally located ?? asymmetry in the left breast is noted on screening mammography from ?? 09/15/2023. ? COMPARISON: ?? Mammography: This study is compared with prior exams dating back to ?? 2017. ? TECHNIQUE: ?? Digital breast tomosynthesis is performed in both the craniocaudal and ?? mediolateral oblique views along with computer-aided detection (CAD). ?? Synthesized 2D images are generated from the tomosynthesis. A full ?? lateral view of the left breast, a laterally exaggerated CC view and CC ?? spot compression views also obtained ? FINDINGS: ?? There are scattered areas of fibroglandular density (ACR BI-RADS breast ?? composition Category b). ? There are no significant masses, abnormal calcifications, or other ?? abnormalities. ?? The asymmetry from the screening mammogram is due to overlap of normal ?? glandular tissue. ? MM/MM tomosynthesis diagnostic LT ?? IMPRESSION: ?? No mammographic evidence of malignancy. ? ASSESSMENT: ? BI-RADS BI-RADS 1 - Negative ? RECOMMENDATION: ?? 1 year F/U ? Results were provided to the patient at time of visit by the ?? technologist. ? This patient's information was entered into a reminder system with a ?? target due date for their next mammogram. ? Dictated By: ?Vannesa Nuñez MD ? Signed By: ?<Electronically signed by Vannesa Nuñez MD in OV> ? 10/17/23 1423 ? DD/ ? TD/TT: ? Computer Science Teacher: ? Procedure Note Donotuseinterpreter, Image - 10/17/2023 [facility] [address] [place] [address] Mammography Report Signed Patient: Amira CraigMR#: [id number] : 1965Acct:[id number] Age/Sex: 57 / FADM Date: 10/14/23 Loc: HO.MAMMO Attending Dr: Teresa Hunt MD Ordering Physician: Teresa Hunt MDResults: 1 Negative Date of Service: 10/14/23Follow Up: 1 Year From Orig inal Mammogram Procedure(s): MM tomosynthesis diagnostic LT Accession Number(s): [id number] cc: Teresa Hunt MD EXAMINATION: MM DIAGNOSTIC DIGITAL BREAST TOMOSYNTHESIS, LEFT CLINICAL INFORMATION: The patient is seen for further evaluation of a low laterally located asymmetry in the left breast is noted on screening mammography from 09/15/2023. COMPARISON: Mammography: This study is compared with prior exams dating back to 2017. TECHNIQUE: Digital breast tomosynthesis is performed in both the craniocaudal and mediolateral oblique views along with computer-aided detection (CAD). Synthesized 2D images are generated from the tomosynthesis. A full lateral view of the left breast, a laterally exaggerated CC view and CC spot compression views also obtained FINDINGS: There are scattered areas of fibroglandular density (ACR BI-RADS breast composition Category b). There are no significant masses, abnormal calcifications, or other abnormalities. The asymmetry from the screening mammogram is due to overlap of normal glandular tissue. MM/MM tomosynthesis diagnostic LT IMPRESSION: No mammographic evidence of malignancy. ASSESSMENT: BI-RADS BI-RADS 1 - Negative RECOMMENDATION: 1 year F/U Results were provided to the patient at time of visit by the technologist. This patient's information was entered into a reminder system with a target due date for their next mammogram. Dictated By: Vannesa Nuñez MD Signed By: <Electronically signed by Vannesa Nuñez MD in OV> 10/17/23 1423 DD/ 1026 TD/TT: Computer Science Teacher: Teresa Hunt MD IMG BI PROCEDURES Final Res ult * Thinprep PAP and HPV nRNA E6/E7 (09/10/2022 12:00 AM EST) Clinical Information: POSSIBLE UTERINE DIDELPHYS, ANTERI Incentive Targeting-[facility] LMP: NONE GIVEN Incentive Targeting-[facility] Prev. PAP: NONE GIVEN Incentive Targeting-[facility] Prev. BX: NONE GIVEN Incentive Targeting-[facility] SOURCE: None given Incentive Targeting-[id number] Statement Of Adequacy: [employer] Comment: Satisfactory for evaluation. Endocervical/transformation zone component present. Age and/or menstrual status not provided Interpretation/ Result: Negative for intraepithelial lesion or malignancy. [employer] Cytotechnologis t: [employer] Comment: KN, CT(ASCP) CT screening location: [address] ??[address] Review Cytotechnologis t: [facility] Comment: WAC, CT(ASCP) CT screening location: [address] ??[address] (Always Message) [employer] Comment: EXPLANATORY NOTE: The Pap is a screening test for cervical cancer. It is not a diagnostic test and is subject to false negative and false positive results. It is most reliable when a satisfactory sample, regularly obtained, is submitted with relevant clinical findings and history, and when the Pap result is evaluated along with historic and current clinical information. HPV nRNA E6/E7 Not Detected Not Detected Fridge Comment: Methodology: Insurance Agents Supervisor-Mediated Amplification This assay detects E6/E7 viral messenger RNA (mRNA) from 14 high-risk HPV types (16,18,31,33,35,39,45,51,52,56,58,59,66,68). Cervical sources are required for HPV testing. If a vaginal source from a patient who has had a total hysterectomy with removal of cervix was submitted, please contact the testing laboratory for alternative testing options. For additional information, please refer to http://[email or web address].WillCall/faq/LKJ318m8 (This link if provided for information/ educational purposes only.) 09/10/2022 09/11/2022 2:1 7 AM EST Narrative [facility] - 09/18/2022 10:38 AM EST FASTING: UNKNOWN Jaqueline Currie CNM LAB PATHOLOGY ORDERABLES Final Result [facility] [address] [facility], [place] [address] [employer] [facility] [address], ([address]) [place] [address] from Last 3 Months or Most Recently Relevant to Health Maintenance Insurance [employer] Care Teams Quality Lab Technician Relationship Specialty Start Date End Date Teresa Hunt MD [address] [place] [id number] PCP - General Internal Medicine 08/25/18
== END 2024-09-20 09:50 | disposition home or self-care (01) ==
LOC: HO.MAMMO 09:49
PROVIDERS: PCP Internal Medicine; Visit Provider Internal Medicine
DX: Z12.31 Encounter for screening mammogram for malignant neoplasm of breast (principal)
CPT/HCPCS: 77063; 77067

== ENCOUNTER → 2024-09-20 10:00 | Outpatient (BNV) | payer OTHER, SELFPAY | PROVIDERS: PCP Internal Medicine; Visit Provider Internal Medicine | DX: Z12.31 Encounter for screening mammogram for malignant neoplasm of breast (principal) | CPT/HCPCS: 77063; 77067 ==

== ENCOUNTER 2024-12-18 07:51 | Emergency (ER) | payer OTHER, SELFPAY ==
--- NOTE | ~2024-12-18 | MR_ITS ---
CLINICAL HISTORY: Left side weakness Examination: MRI brain without IV contrast Comparison: CT - CT ANGIO HEAD NECK - 12/18/24 09:[address]/SR - CT ANGIO HEAD NECK - 12/18/24 09:28 EDT Findings: DWI/ADC: No restriction. T2*GRE or SWI: No susceptibility effect to suggest blood products. T2 FLAIR: Complete homogeneous suppression. Brain parenchyma demonstrates age-appropriate volume and normal configuration. Ventricles demonstrate a nonobstructive pattern. Basilar cisterns intact. No extra-axial space occupying lesions. No intracranial hemorrhage, midline shift or mass-effect. Corral-white matter junction preserved. No white matter signal abnormalities. The brainstem and cerebellar hemispheres are unremarkable. No tonsillar ectopia. Craniocervical junction and cervical medullary junction intact. The expected venous and arterial flow voids are present. The orbital contents are unremarkable. Sphenoid ethmoid and maxillary sinusitis nonobstructive type. No mastoid effusions are demonstrated. Impression: 1. No restricted diffusion to suggest acute infarct. 2. No recent or remote hemorrhage space-occupying lesions, midline shift or mass effect 3. No white matter signal abnormalities This document has been electronically signed by: Sai Rivera MD on 12/18/2024 12:35:14
--- NOTE | ~2024-12-18 | CT_ITS ---
CLINICAL HISTORY: Left-sided weakness x2 days CT head without contrast. CT angiography head with IV contrast. 3-D postprocessing Comparison: None Findings: CT head showed no space-occupying lesion. No midline shift or mass-effect. Ventricles and sulci are age appropriate. Calvarium intact. Ethmoid sphenoid and maxillary sinusitis No mastoid effusions. Angiographic images of the head: The terminal portion of both internal carotid arteries are patent. The anterior and middle cerebral arteries are patent along their proximal aspects. Posteriorly within the head, the intradural vertebral arteries, basilar artery and emotionally impaired teacher are patent. No aneurysm or arteriovenous shunting lesion is appreciated. Impression: 1. Wide patency of the intracranial arterial circulation. 2. No intracranial aneurysm or AVM. 3. Unremarkable CT enhancement of the brain parenchyma. CT angiography neck with contrast. 3-D postprocessing Comparison: None Findings: Angiographic images of the neck: The bilateral common carotid arteries are patent. Both carotid bulbs are widely patent. Both ICAs follow normal course and caliber through their distal cervical segments. Posteriorly within the neck, the vertebral arteries are left dominant with patent origins. Both vessels follow normal course and caliber through their suboccipital segments. Adenoids are not enlarged. Normal Fossa of Rosenmuller. Epiglottis and palatine tonsils are not enlarged. No subglottic masses. Normal thyroid gland. Osseous structures intact. Lung apices unremarkable. Impression: 1. There is no stenosis of the right common carotid artery bifurcation and proximal right internal carotid artery based on NASCET criteria. 2. There is no stenosis of the left common carotid artery bifurcation and proximal left internal carotid artery based on NASCET criteria. 3. Wide patency of the cervical vertebral arteries. This document has been electronically signed by: Sai Rivera MD on 12/18/2024 10:11:16
--- NOTE | ~2024-12-18 | XR_ITS ---
CLINICAL HISTORY: Left-sided weakness 1 view chest x-ray. Comparison: None Findings: Normal lung volumes. Lungs are clear. No pneumothorax or pleural effusion. Heart size normal. No passive venous congestion. No midline shift or tracheal deviation. No acute fracture. Impression: 1. No acute cardiopulmonary disease. This document has been electronically signed by: Sai Rivera MD on 12/18/2024 09:22:21
[2024-12-18 07:56] VITALS: BP 134/81; PULSE 69; RESP 16; TEMP 36.6; O2SAT 97; BMI 21.4
[2024-12-18 08:00] VITALS: BP 132/81; PULSE 66; RESP 16; TEMP 36.3; O2SAT 100
--- NOTE | 2024-12-18 08:14 | PC.NURSE ---
pt self presented to ED for numbness and tingling in left arm and left side of face with slight left sided facial droop. reports these symptoms initially started two days ago but got worse this morning at approx 0700 while she was driving her car, pt reports she had to have her sister take over driving. pt is not on blood thinners, has no new medication. upon neuro assessment pt demonstrates MAO strength in both hands, slight weakness in left upper extremity, no drift, left facial droop noted - pt GCS 15, alert and oriented, able to follow commands.
--- NOTE | 2024-12-18 08:19 | ECG_ITS ---
Test Reason : LEFT SIDED WEAKNESS Blood Pressure : */* mmHG Vent. Rate : 72 BPM Atrial Rate : 72 BPM P-R Int : 176 ms QRS Dur : 72 ms QT Int : 358 ms P-R-T Axes : 60 52 60 degrees QTcB Int : 392 ms Normal sinus rhythm Normal ECG When compared with ECG of 24-Sep-2020 18:08, No significant change was found Referred By: Amor Junior Electronically Signed By: BERNABE RAIN
--- NOTE | 2024-12-18 08:20 | ED_ITS ---
HPI - Neuro Symptoms/Deficit General Chief Complaint: Neuro Symptoms/Deficit Stated Complaint: left side numbness twisted facial feeling Time Seen by Provider: 12/18/24 08:11 Source: patient and family Mode of arrival: ambulatory Limitations: no limitations History of Present Illness ED Provider: DR. Junior HPI Narrative: 59-year-old female came in for evaluation of left-sided body numbness, left facial weakness started 2 days ago patient did not seek immediate medical attention because she thought she had allergic reaction. Patient is not on AC medication, no headache, no blurry vision. No hormonal therapy, no contraceptive pills, no other medical problem Related Data Home Medications ?Medication ?Instructions ?Recorded ?Confirmed cholecalciferol (vitamin D3) 10 10 mcg PO DAILY 12/12/22 mcg (400 unit) capsule Previous Rx's ?Medication ?Instructions ?Recorded tramadol 50 mg tablet 50 mg PO Q6H PRN pain #20 tabs 09/24/20 cyclobenzaprine 10 mg tablet 10 mg PO TID PRN muscle spasm #15 07/20/21 tabs naproxen 500 mg tablet,delayed 500 mg PO BID PRN pain #15 tabs 07/20/21 release prednisone 20 mg tablet 20 mg PO BID #10 tabs 12/18/24 valacyclovir 1 gram tablet 1,000 mg PO TID #21 tabs 12/18/24 (Valtrex) Allergies Allergy/AdvReac Type Severity Reaction Status Date / Time No Known Allergies Allergy Verified 12/18/24 07:58 [No Known Allergies*] Review of Systems 2 Review of Systems: All other systems are reviewed and are negative Constitutional: Reports as per HPI and Reports no additional constitutional complaints Eyes: Reports as per HPI and Reports no additional eye complaints Reports system reviewed and no additional complaints, except as documented Cardiovascular: Reports as per HPI and Reports no additional cardiovascular complaints Respiratory: Reports as per HPI and Reports no additional respiratory complaints Gastrointestinal: Reports as per HPI and Reports no additional gastrointestinal complaints Genitourinary: Reports no additional female genitourinary complaints Musculoskeletal: Reports no additional musculoskeletal complaints Skin/Breast: Reports system reviewed and no additional complaints, except as docu Psychiatric: Reports no additional psychiatric complaints Endocrine: Reports no additional endocrine complaints Hematologic/Lymphatic: Reports no additional hematologic/lymphatic complaints Allergic/Immunologic: Reports no additional allergic/immunologic complaints Reports system reviewed and no additional complaints, except as documented and Reports Abnormal speech present PMFSH Past Medical History Surgical History Hx of tubal ligation History of Social History Social History Alcohol intake: never Smoked in Last 30 Days: No Use of substances other than those prescribed or required for medical reasons: No Advance Directives: No Advance Directives Information Provided: No Patient : No Physical Exam 2 Vital Signs: Vital Signs: Last Vital Signs Temp 97.3 F 12/18/24 12:00 Pulse 64 12/18/24 12:00 Resp 14 12/18/24 12:00 BP 120/74 12/18/24 12:00 Pulse Ox 99 12/18/24 12:00 O2 Del Method Room Air 12/18/24 12:00 BMI result Body Mass Index 21.4 Vital signs have been reviewed and appear to be correct. Blood pressure elevated. Heart rate normal. Respiratory rate normal. Temperature normal. Oxygen saturation normal. Appearance: Alert. Oriented X3. No acute distress. Head: Normal external exam. Normocephalic. Atraumatic. No Porter signs noted. No raccoon eyes noted Eyes: PERRLA. EOMI. Conjunctiva and sclera normal. Eyelids normal. ENT: TM's Normal. Pharynx normal. Uvula midline. Moist mucous membranes. No trismus noted. No drooling noted. No muffled voice noted. Neck: Normal inspection. Neck supple. FROM. No adenopathy. Thyroid Normal. No meningeal signs. No neck mass noted. CVS: Normal heart rate and rhythm. Heart sound normal. No murmurs noted. Pulses normal throughout. Respiratory: No respiratory distress. Painless inspiration. Breath sounds normal. No wheezes/rales/rhonchi noted. Chest nontender. No accessory muscle usage noted or decreased air movement noted. Abdomen: Soft and nontender. Bowel sounds normal in all 4 quadrants. No distention noted. No organomegaly noted. No visible injury noted. Back: No CVA tenderness. Full range of motion noted. Skin: Skin warm and dry. Normal skin color. Normal skin turgor. No rashes/lesions/lacerations noted. Extremities: No lower extremity edema. Extremities exhibit normal range of motion. Extremities nontender. Neuro: Mental status: Normal attention, orientation, memory, and affect. Cranial nerves: Pupils are equal, round and reactive to light, EOMI, visual sierra are fall, face is symmetric, facial sensations decreased on the left side, forehead and lower facial muscle is affected. Motor examination normal muscle tone, strength to 4 extremities. DTR are +2, planter's are flexor. Sensory exam; normal coordination, no ataxia, gait stable, increased numbness to the left side of the body. Cerebellar exam: Mxxfyo-va-gkun and akkn-qc-hdmu is normal. Extrapyramidal system: No tremors, no rigidity with normal facial expressions. 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 Will check for Lyme disease. Elevated liver enzyme patient was instructed to follow-up with PCP. Time: 13:10 Medications Administered Discontinued Medications Generic Name Dose Route Start Last Admin Trade Name Freq PRN Reason Stop Dose Admin Iohexol 100 ml 12/18/24 09:39 12/18/24 09:40 Iohexol 350 Mg/Ml 100 Ml Infus..Btl IV 12/18/24 09:40 65 ml ONCE ONE Administration Medical Decision Making Differential Diagnosis Differential Diagnoses: The differential diagnosis associated with the presentation includes (Hemorrhagic stroke, ischemic stroke, Quijano's palsy, electrolyte derangement, severe anemia.) Admission/Observation Consideration of admission/observation: Escalation of care including admission/observation considered Lab Data MDM Lab Attestation statement: I reviewed the patient's lab results. 12/18/24 08:27 12/18/24 08:27 Labs: Lab Results 12/18/24 12/18/24 Range/Units 08:27 08:50 WBC 4.1 L (4.8-10.8) X10*3/uL RBC 4.80 (4.20-5.50) X10*6/uL Hgb 14.4 (12.0-16.0) g/dl Hct 41.9 (37.0-47.0) % MCV 87.3 (80.0-98.0) fL MCH 30.0 (27.0-33.0) pg MCHC 34.4 (31.0-35.0) g/dl RDW 12.2 (11.0-16.0) % Plt Count 219 (160-400) X10*3/uL MPV 9.8 (9.4-12.3) fL Immature Gran % (Auto) 0.2 (0.0-0.4) % Neut % (Auto) 58.7 (45-73) % Lymph % (Auto) 24.8 (20-40) % Scurry % (Auto) 7.8 (2-11) % Eos % (Auto) 7.8 H (0-4) % Baso % (Auto) 0.7 (0-2) % Lymph # (Auto) 1.0 L (1.2-4.9) X10*3/uL Scurry # (Auto) 0.3 (0.1-1.2) X10*3/uL Eos # (Auto) 0.3 (0.0-0.4) X10*3/uL Baso # (Auto) 0.0 (0.0-0.2) X10*3/uL Abs Immat Gran (auto) 0.01 (0.00-0.03) X10*3/uL Absolute Neuts (auto) 2.4 (2.0-8.3) x10*3/uL Absolute Nucleated RBC 0.000 (0.0-0.012) X10*3/uL Nucleated RBC % (auto) 0.0 (0.0-0.2) /100WBC PT 11.5 (10.9-12.4) SEC INR 1.0 (0.9-1.1) Sodium 140 (135-145) mmol/L Potassium 4.2 (3.3-5.1) mmol/L Chloride 107 (96-108) mmol/L Carbon Dioxide 27 (22-29) mmol/L Anion Gap 10 L (12-20) BUN 15 (9-16) mg/dL Creatinine 0.70 (0.5-1.4) mg/dL Estim Creat Clear Calc 76.5 Estimated GFR > 60 Random Glucose 100 (60-115) mg/dL Calcium 9.5 (8.4-10.2) mg/dL Total Bilirubin 1.2 H (0.0-1.0) mg/dL Direct Bilirubin 0.3 (0.0-0.5) mg/dL AST 44 H (5-31) U/L ALT 166 H (0-31) U/L Alkaline Phosphatase 121 H (39-117) U/L Troponin I High Sens < 2.7 (<3.5-17.0) ng/L B-Natriuretic Peptide < 10 (<100) pg/mL Total Protein 7.5 (6.5-8.0) g/dL Albumin 4.2 (3.5-5.0) g/dL Lipase 36 (8-78) U/L Urine Color Yellow Urine Appearance Clear Urine pH 6.5 (5.0-9.0) Ur Specific [place] <= 1.005 (1.005-1.025) Urine Protein Negative (Neg-Trace) mg/dL Urine Glucose (UA) Negative (Negative) mg/dL Urine Ketones Negative (Negative) mg/dL Urine Blood Negative (Negative) Urine Nitrite Negative (Negative) Ur Leukocyte Esterase Moderate (2+) H (Negative) Urine RBC 0-2 (0-2) /HPF Urine WBC 0-5 (0-5) /HPF Ur Squamous Epith Cells 0-2 (0-2) /HPF Urine Bacteria None Seen (None Seen) Hyaline Casts 0-2 (0-2) /LPF Influenza Type A (PCR) NEGATIVE (Negative) Influenza Type B (PCR) NEGATIVE (Negative) RSV RNA Qual (PCR) NEGATIVE (Negative) SARS-CoV-2 RNA (RT-PCR) NEGATIVE (Negative) NIH Stroke Scale Time: 08:26 Level of Consciousness: Alert Level of Consciousness Questions: Answers both questions correctly Level of Consciousness Commands: Performs both tasks correctly Best Gaze: Normal Visual: No visual loss Facial Palsy: Minor paralyis Motor Arm (Right): No drift Motor Arm (Left): No drift Motor Leg (Right): No drift Motor Leg (Left): No drift Limb Ataxia: Absent Sensory: Mild to moderate sensory loss Best Language: No aphasia Dysarthia: Normal Extinction and Inattention: No abnormality Score: 2 Discharge Plan Discharge Clinical Impression: Left-sided Quijano's palsy, Elevated liver enzymes Patient Disposition: Home, Self-Care Instructions: Quijano Palsy (ED) Prescriptions: New valacyclovir [Valtrex] 1 gram tablet 1,000 mg PO TID Qty: 21 0RF prednisone 20 mg tablet 20 mg PO BID Qty: 10 0RF No Action tramadol 50 mg tablet 50 mg PO Q6H PRN (Reason: pain) Qty: 20 0RF naproxen 500 mg tablet,delayed release (DR/EC) 500 mg PO BID PRN (Reason: pain) Qty: 15 0RF cyclobenzaprine 10 mg tablet 10 mg PO TID PRN (Reason: muscle spasm) Qty: 15 0RF cholecalciferol (vitamin D3) 10 mcg (400 unit) capsule 10 mcg PO DAILY Referrals: Teresa Hunt MD [Primary Care Provider] - Print Language: Tamazight
--- OUTSIDE RECORDS SUMMARY | 2024-12-18 08:23 | XMS_ITS | Clinical Summary ---
Author Organization [employer] Address [address] [place] [address] Care Team Providers Care Design Assistant Name Role Phone Teresa Hunt MD Primary [...] pain or fevers 90 tablet 4 Active Encounters Date Type Department Care Team Description 09/20/2024 Orders Only [facility] [address] [place] [address] Teresa Hunt MD from Last 3 Months Social History Tobacco Use Types Packs/Day Years [...] Tobacco Screening 1979 Hepatitis C Screening 10/26/1985 Pneumococcal Vaccine: 50+ Years (1 of 1 - PCV) 10/26/2017 Zoster Vaccines (1 of 2) 10/26/2017 DTaP/Tdap/Td Vaccines (2 - Td or Tdap) 02/15/2023 02/15/2013 COVID-19 Vaccine ( - season) 2024 09/04/2021, 01/02/2021, 12/12/2020 Influenza Vaccine (#1) 2024 , 05/23/2014, 05/06/2013 Pap Smear 09/10/2025 09/10/2022, 08/25, 06/25/2016 Mammogram 09/20/2026 09/20/2024, 02/, 09/15/2023, Additional history exists Cervical Cancer Screening 09/10/2027 [...] Priority Date/Time Associated Diagnosis Comments BI MAMMOGRAM SCREENING TOMOSYNTHESIS BILATERAL Routine 09/20/2024 10:00 AM EST THINPREP PAP AND HPV MRNA E6/E7 Routine 09/10/2022 12:00 AM EST from Last 3 Months or Most Recently Relevant to Health Maintenance Results * BI Mammogram Screening Tomosynthesis Bilateral (09/20/2024 10:00 AM EST) Anatomical Region Laterality Modality Breast Bilateral Mammography 09/20/2024 10:0 0 AM EST Narrative 09/28/2024 3:42 PM EST ? [facility] ? [address] ?[place] [id number] ? Mammography Report ? Signed ? Patient: Fina Keene,Modestoseling ?MR#: ?? [id number] ? : 1965 ?Acct:[id number] ? Age/Sex: 58 / F ?ADM Date: 01/27/25 ? Loc: HO.MAMMO ? Attending Dr: Teresa Hunt MD ? Ordering Physician: Teresa Hunt MD ?Results: 1 ?? Negative ? Date of Service: 09/20/24 ?Follow Up: 1 Year From Orig ?? inal Mammogram ? Procedure(s): MM tomosynthesis screening BI ?? Accession Number(s): [id number] ? cc: Teresa Hunt MD ? EXAMINATION: ?? MM SCREENING DIGITAL BREAST TOMOSYNTHESIS, BILATERAL ? CLINICAL INFORMATION: ? Screening. Asymptomatic. ? COMPARISON: ?? Mammography: Comparison is made with available priors ? TECHNIQUE: ?? Digital breast mammography with tomosynthesis is performed in both the ?? craniocaudal and mediolateral oblique views along with computer-aided ?? detection (CAD). ? FINDINGS: ?? The breasts are heterogeneously dense, which may obscure small masses ?? (ACR BI-RADS breast composition Category c). ? There are no significant masses, abnormal calcifications, or other ?? abnormalities. ? MM/MM tomosynthesis screening BI ?? IMPRESSION: ?? No mammographic evidence of malignancy. ? ASSESSMENT: ? BI-RADS BI-RADS 1 - Negative ? RECOMMENDATION: ?? Routine annual mammography screening. ? 1 year F/U ? This examination should not preclude the clinical evaluation of a ?? suspicious palpable abnormality. ? This patient's information was entered into a reminder system with a ?? target due date for their next mammogram. ? Electronically signed by: ??Alyssa Fabian DO ??09/28/2024 03:39 PM EST ?? RP ? Dictated By: ?Alyssa Fabian DO ? Signed By: ?<Electronically signed by Alyssa Fabian, DO in OV> ? 09/28/24 1539 ? DD/ 1000 ? TD/TT: 09/20/24 1020 ? Photonics Engineer: ? Procedure Note [facility]bo [facility] [address] [place] [address] Mammography Report Signed Patient: Estevan Craig#: [id number] : 1965Acct:[id number] Age/Sex: 58 / FADM Date: 09/20/24 Loc: HO.MAMMO Attending Dr: Teresa Hunt MD Ordering Physician: Teresa Hunt MDResults: 1 Negative Date of Service: 09/20/24Follow Up: 1 Year From Orig inal Mammogram Procedure(s): MM tomosynthesis screening BI Accession Number(s): [id number] cc: Teresa Hunt MD EXAMINATION: MM SCREENING DIGITAL BREAST TOMOSYNTHESIS, BILATERAL CLINICAL INFORMATION: Screening. Asymptomatic. COMPARISON: Mammography: Comparison is made with available priors TECHNIQUE: Digital breast mammography with tomosynthesis is performed in both the craniocaudal and mediolateral oblique views along with computer-aided detection (CAD). FINDINGS: The breasts are heterogeneously dense, which may obscure small masses (ACR BI-RADS breast composition Category c). There are no significant masses, abnormal calcifications, or other abnormalities. MM/MM tomosynthesis screening BI IMPRESSION: No mammographic evidence of malignancy. ASSESSMENT: BI-RADS BI-RADS 1 - Negative RECOMMENDATION: Routine annual mammography screening. 1 year F/U This examination should not preclude the clinical evaluation of a suspicious palpable abnormality. This patient's information was entered into a reminder system with a target due date for their next mammogram. Electronically signed by: Alyssa Fabian DO 09/28/2024 03:39 PM EST Dictated By: Alyssa Fabian DO Signed By: <Electronically signed by Alyssa Fabian DO in OV> 09/28/24 1539 DD/ 1000 TD/TT: 09/20/24 1020 Photonics Engineer: us Teresa Hunt MD IMG BI PROCEDURES Final Res ult * Thinprep PAP and HPV nRNA E6/E7 (09/10/2022 12:00 AM EST) Clinical Information: POSSIBLE UTERINE DIDELPHYS, ANTERI Neurovancet LMP: NONE GIVEN [facility] Prev. PAP: NONE GIVEN [facility] Prev. BX: NONE GIVEN [facility] SOURCE: None given Neurovancet Statement Of Adequacy: Neurovancet Comment: Satisfactory for evaluation. Endocervical/transformation zone component present. Age and/or menstrual status not provided Interpretation/ Result: Negative for intraepithelial lesion or malignancy. [employer]olog[employer]: Neurovancet Comment: KN, CT(ASCP) CT screening location: [address] ??[id number] Review Cytotechnologis t: [employer] [place] [employer] Comment: WAC, CT(ASCP) CT screening location: [address] ??[address] (Always Message) Neurovancet Comment: EXPLANATORY NOTE: The Pap is a [...] HPV nRNA E6/E7 Not Detected Not Detected [facility] Comment: Methodology: Residential Plumber-Mediated Amplification This assay detects E6/E7 viral messenger RNA (mRNA) from 14 high-risk HPV types (16,18,31,33,35,39,45,51,52,56,58,59,66,68). Cervical sources are required for HPV testing. If a vaginal source from a patient who has had a total hysterectomy with removal of cervix was submitted, please contact the testing laboratory for alternative testing options. For additional information, please refer to http://education.ShipBob/faq/PCC517p3 (This link if provided for information/ educational purposes only.) 09/10/2022 09/11/2022 2:1 7 AM EST Narrative [facility] - 09/18/2022 10:38 AM EST FASTING: UNKNOWN Jaqueline Currie CNM LAB PATHOLOGY ORDERABLES Final Result [facility] [address] [place] [address] [employer] [address], ([address]) [place] [address] from Last 3 Months or Most Recently Relevant to Health Maintenance Insurance [employer] Care Teams Design Assistant Relationship Specialty Start Date End Date Teresa Hunt MD [address] [place] [address] PCP - General Internal Medicine 08/25/18
--- OUTSIDE RECORDS SUMMARY | 2024-12-18 08:23 | XMS_ITS | Encounter Summary ---
Author Organization [facility] Address [address] [place] [address] Care Team Providers Care Encapsulator Name Role Phone Teresa Hunt MD Primary Care Provider [phone] Encounter Details Date Type Department Care Team (Late st Contact Info) Description 09/23/2022 Orders Only [facility] [address] [place] [address] Vicki Martinez RN [address] [place] [address] Social History Tobacco Use Types Packs/Day Years [...] on filedocumented in this encounter Care Teams Encapsulator Relationship Specialty Start Date End Date Teresa Hunt MD [address] [place] [address] PCP - General Internal Medicine 08/25/18 documented as of this encounter
[2024-12-18 08:32] LABS: MANUAL DIFF FLAG NO
[2024-12-18 08:34] LABS: Basophils Percent Auto 0.7 % (0-2); Eosinophils Absolute Auto 0.3 X10*3/uL (0.0-0.4); Eosinophils Percent Auto 7.8 % (0-4); Hematocrit 41.9 % (37.0-47.0); Hemoglobin 14.4 g/dl (12.0-16.0); Imm Gran Abs Auto 0.01 X10*3/uL (0.00-0.03); Imm Gran Pct Auto 0.2 % (0.0-0.4); Lymphocytes Percent Auto 24.8 % (20-40); Mean Corpuscular HGB Conc 34.4 g/dl (31.0-35.0); Mean Corpuscular Volume 87.3 fL (80.0-98.0); Mean Platelet Volume 9.8 fL (9.4-12.3); Monocytes Absolute Auto 0.3 X10*3/uL (0.1-1.2); Monocytes Percent Auto 7.8 % (2-11); Neutrophils Absolute Auto 2.4 x10*3/uL (2.0-8.3); Neutrophils Percent Auto 58.7 % (45-73); Platelet Count 219 X10*3/uL (160-400); Red Cell Distribution Width 12.2 % (11.0-16.0); White Blood Count 4.1 X10*3/uL (4.8-10.8)
[2024-12-18 08:47] LABS: Prothrombin Time 11.5 SEC (10.9-12.4)
[2024-12-18 08:53] LABS: B Type Natriuretic Peptide < 10 pg/mL (<100)
[2024-12-18 09:05] LABS: Appearance Urine Clear; Color Urine Yellow; Glucose Urine UA Negative (Negative); Leukocyte Esterase Urine Moderate (2+) (Negative); Nitrite Urine Negative (Negative); PH 6.5 (5.0-9.0); Specific Gravity - Urine <= 1.005 (1.005-1.025); UMIC TRIGGER UACC YES; Urine Blood Negative (Negative); Urine Ketones Negative (Negative); Urine Protein Negative (Neg-Trace)
[2024-12-18 09:06] LABS: Alanine Aminotransferase 166 U/L (0-31); Albumin Level 4.2 g/dL (3.5-5.0); Alkaline Phosphatase 121 U/L (39-117); Anion Gap 10 (12-20); Aspartate Amino Transferase 44 U/L (5-31); Bilirubin Direct 0.3 mg/dL (0.0-0.5); Bilirubin Total 1.2 mg/dL (0.0-1.0); Blood Urea Nitrogen 15 mg/dL (9-16); Calcium 9.5 mg/dL (8.4-10.2); Carbon Dioxide 27 mmol/L (22-29); Chloride 107 mmol/L (96-108); Creatinine Clr Calc Pharmacy 76.5; Estimated Glomerular Filt Rate > 60; Glucose Random 100 mg/dL (60-115); Lipase 36 U/L (8-78); Potassium 4.2 mmol/L (3.3-5.1); Sodium 140 mmol/L (135-145); Total Protein 7.5 g/dL (6.5-8.0)
[2024-12-18 09:16] LABS: Influenza A PCR NEGATIVE (Negative); Influenza B PCR NEGATIVE (Negative); Resp Syncy Virus RNA Qual PCR NEGATIVE (Negative); SARS COV2 PCR INHOUSE NEGATIVE (Negative)
[2024-12-18 09:21] LABS: Bacteria Urine None Seen (None Seen); Hyaline Casts Urine 0-2 /LPF (0-2); RBC Urine 0-2 /HPF (0-2); Squamous Epithelial Cell Urine 0-2 /HPF (0-2); UACC Culture Trigger YES; WBC Urine 0-5 /HPF (0-5)
[2024-12-18 09:21] LABS: Troponin-I High Sensitivity < 2.7 ng/L (<3.5-17.0)
[2024-12-18] MEDS: iohexoL 350 MG/ML 100 ML INFUS..BTL IV (09:40)
[2024-12-18 10:00] VITALS: BP 119/71; PULSE 60; RESP 16; TEMP 36.7; O2SAT 98
--- NOTE | 2024-12-18 11:19 | PC.NURSE ---
pt to go to MRI at this time
[2024-12-18 12:00] VITALS: BP 120/74; PULSE 64; RESP 14; TEMP 36.3; O2SAT 99
--- NOTE | 2024-12-18 12:21 | PC.NURSE ---
pt has returned from MRI at this time
[2024-12-18] MEDS: predniSONE 20 MG TABLET 40 MG PO (13:09)
[2024-12-18 13:28] VITALS: BP 122/70; PULSE 60; RESP 18; TEMP 36.6; O2SAT 100
[2024-12-20 21:38] LABS: Lyme Abs Screen <0.90 index
== END 2024-12-18 13:29 | disposition home or self-care (01) ==
PROVIDERS: Emergency Provider Emergency Medicine; PCP Internal Medicine
DX: G51.0 Bell's palsy (principal); R20.0 Anesthesia of skin; R53.1 Weakness; R29.702 NIHSS score 2; R79.89 Other specified abnormal findings of blood chemistry; Z79.899 Other long term (current) drug therapy; Z03.818 Encounter for observation for suspected exposure to other biological agents ruled out
CPT/HCPCS: 0241U; 36415; 70496; 70498; 70551; 71045; 80048; 80076; 81001; 81003; 83690; 83880; 84484; 85025; 85610; 86617; 86618; 87086; 93005; 99285; Q9967

== ENCOUNTER → 2024-12-18 08:19 | Outpatient (BNV) | payer OTHER, SELFPAY | PROVIDERS: Emergency Provider Emergency Medicine; PCP Internal Medicine; Visit Provider Radiology Diagnostic Radiology | DX: R53.1 Weakness (principal) | CPT/HCPCS: 70496; 70498; 70551; 71045 ==

== ENCOUNTER → 2024-12-18 08:19 | Outpatient (BNV) | payer OTHER, SELFPAY | PROVIDERS: Emergency Provider Emergency Medicine; PCP Internal Medicine; Visit Provider Internal Medicine | DX: R53.1 Weakness (principal) | CPT/HCPCS: 93010 ==

== ENCOUNTER 2025-01-28 09:07 | Outpatient (RCR) | payer OTHER, SELFPAY | END 2025-03-09 13:06 | disposition home or self-care (01) | LOC: HO.PT 09:07 | PROVIDERS: PCP Internal Medicine; Visit Provider Internal Medicine | DX: M62.81 Muscle weakness (generalized) (principal) | CPT/HCPCS: 97112; 97161 ==

== ENCOUNTER 2025-05-24 09:19 | Outpatient (REF) | payer OTHER, SELFPAY ==
--- OUTSIDE RECORDS SUMMARY | 2025-05-20 14:00 | XMS_ITS | Encounter Summary ---
Author Organization [employer] Address [address] [place] [address] [facility] [place] [address] Care Team Providers Care Anesthesia Assistant Name Role Phone Teresa Hunt MD Primary Care Provider [phone] Reason for Referral * Consultation (Routine) - Authorized Specialty Diagnoses / Procedures Referred By Contedy t Referred To Contact Gastroenterology Diagnoses Screening for colon cancer Teresa Hunt MD [address] [place] [address] Phone: tel: fax: Melani Mims MD [address] [place] [address] Phone: tel: fax: Referral ID Status Reason Start Date Expiration Date Visits Requested Visits Authorized [id number] Authorized Specialty Services Required 05/20/2025 05/20/2026 1 1 Reason for Visit * Reason Comments Annual Exam Encounter Details Date Type Department Care Team (Late st Contact Info) Description 05/20/2025 2:00 PM EDT Office Visit [facility] MED & PEDS [address], [place] [phone] Teresa Hunt MD [address], [place] [phone] Annual physical exam (Primary Dx); Quijano's palsy; Encounter for immunization; Screening for colon cancer Social History Tobacco Use Types Packs/Day Years Used Date Smoking Tobacco: Never Passive Smoke Exposure: Never Smokeless Tobacco: Never Tobacco Cessation:Counseling Given: Not Answered Depression Answer Date Recorded Patient Health Questionnaire-9 Score 2 05/20/2025 Patient Health Questionnaire-9 Score 2 05/20/2025 Last PHQ-9: Questionnaire Data Not on file 0 05/20/2025 Housing Stability Answer Date Recorded What is your housing situation today? I have rafat joyner 03/22/[address] you li ve. Do you have problems with any of the following? None of the above 03/22/2025 Food Insecurity Answer Date Recorded Within the past 12 months, y ou worried that your food would run out before you got money to buy more: Never True 03/22/2025 Within the past 12 months,th e food you bought just didn't last and you didn't have enough money to get more: Never True Transportation Answer Date Recorded In the past 12 months, has l ack of transportation kept you from medical appts, meetings, work or from getting things needed for daily living? No 03/22/2025 Utilities Answer Date Recorded In the past 12 months, has t he electric, gas, oil or water company threatened to shut off services in your home? No 03/22/2025 Depression Answer Date Recorded Patient Health Questionnaire-2 Score 0 05/20/2025 Internet Access Answer Date Recorded Internet Access Q1 Yes 03/22/2025 Internet Access Q2 Not on file 03/22/2025 Comments No Sex and Gender Information Value Date Recorded Sex Assigned at Female 06/24/2022 10:20 AM EDT Legal Sex Female 10:20 AM EDT Gender Identity Female 06/24/2022 10:20 AM EDT Sexual Orientation Choose not to disclose 2021 10:20 AM EDT documented as of this encounter Last Filed Vital Signs Vital Sign Reading Time Taken Comments Blood Pressure 110/70 05/20/2025 1:56 PM EDT Pulse 72 05/20/2025 1:56 PM EDT Temperature 36.7 C (98.1 F) 05/20/2025 1:56 PM EDT Respiratory Rate 16 05/20/2025 1:56 PM EDT Oxygen Saturation - - Inhaled Oxygen Concentration - - Weight 59 kg (130 lb) 05/20/2025 1:56 PM EDT Height 162.3 cm (5' 3.88 ) 05/20/2025 1:56 PM ED T Body Mass Index 22.4 05/20/2025 1:56 PM EDT documented in this encounter Functional Status * Over the past 2 weeks, how often have you been bothered by any of the following problems? Question Answer Date of Assessment Author Patient Health Questionnaire -2 Score 0 05/20/2025 2:12 PM EDT Gina Nance MA * Little interest or pleasure in doing things Answer Date of Assessment Author Not at all 05/20/2025 2:12 PM EDT Elsy Nance MA * Feeling down, depressed, or hopeless Answer Date of Assessment Author Not at all 05/20/2025 2:12 PM EDT Elsy Nance MA * Trouble falling or staying asleep, or sleeping too much Answer Date of Assessment Author Not at all 05/20/2025 2:12 PM EDT Elsy Nance MA * Feeling tired or having little energy Answer Date of Assessment Author More than half the days 05/20/2025 2:12 PM EDT Elsy Marquez MA * Poor appetite or overeating Answer Date of Assessment Author Not at all 05/20/2025 2:12 PM EDT Elsy Nance MA * Feeling bad about yourself - or that you are a failure or have let yourself or your family down Answer Date of Assessment Author Not at all 05/20/2025 2:12 PM EDT Elsy Nance MA * Trouble concentrating on things, such as reading the newspaper or watching television Answer Date of Assessment Author Not at all 05/20/2025 2:12 PM EDT Elsy Nance MA * Moving or speaking so slowly that other people could have noticed? Or the opposite - being so fidgety or restless that you have been moving around a lot more than usual. Answer Date of Assessment Author Not at all 05/20/2025 2:12 PM SILVIAT Elsy Nance MA * Thoughts that you would be better off or hurting yourself in some way Answer Date of Assessment Author Not at all 05/20/2025 2:12 PM EDT Elsy Nance MA * Patient Health Questionnaire-9 Score Answer Date of Assessment Author 2 05/20/2025 2:12 PM EDT Elsy Nance MA * How difficult have these problems made it for you to do your work, take care of things at home, or get along with other people? Answer Date of Assessment Author Not difficult at all 05/20/2025 2:12 PM EDT Elsy Cota MA documented as of this encounter Progress Notes * Teresa Hunt MD - 05/20/2025 2:00 PM EDT SUBJECTIVE Amira Keene is a 59 y.o. female who presents for Annual Exam. HPI Mrs. Amira Keene is here for her annual physical exam. She feels overall well. Denies any acute events since her last office visit. 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 She is asymptomatic today. Problem List[1] Allergies[2] Medications Ordered Prior to Encounter[3] Review of Systems Constitutional: Negative for activity change, appetite change, chills and diaphoresis. HENT: Negative for dental problem, drooling, ear discharge, ear pain and hearing loss. Eyes: Negative for pain, discharge and itching. Respiratory: Negative for cough, choking and chest tightness. Cardiovascular: Negative for chest pain and leg swelling. Gastrointestinal: Negative for blood in stool and diarrhea. Genitourinary: Negative for difficulty urinating, dyspareunia, dysuria, enuresis, flank pain, frequency and genital sores. Musculoskeletal: Negative for arthralgias, gait problem and joint swelling. Skin: Negative for pallor. Neurological: Negative for dizziness, seizures, speech difficulty, light- headedness and numbness. Psychiatric/Behavioral: Negative for behavioral problems, confusion and decreased concentration. OBJECTIVE Vitals: 05/20/25 1356 BP: 110/70 BP Location: Left arm Patient Position: Sitting BP Cuff Size: Adult Pulse: 72 Resp: 16 Temp: 98.1 ??F (36.7 ??C) TempSrc: Oral Weight: 130 lb (59 kg) Height: 5' 3.88 (1.623 m) Physical Exam Constitutional: General: She is not in acute distress. Appearance: Normal appearance. She is not ill-appearing, toxic-appearing or diaphoretic. HENT: Head: Normocephalic. Right Ear: Tympanic membrane normal. There is no impacted cerumen. Left Ear: Tympanic membrane normal. There is no impacted cerumen. Nose: Nose normal. No congestion or rhinorrhea. Mouth/Throat: Mouth: Mucous membranes are moist. Eyes: General: No scleral icterus. Right eye: No discharge. Left eye: No discharge. Pupils: Pupils are equal, round, and reactive to light. Cardiovascular: Rate and Rhythm: Normal rate and regular rhythm. Heart sounds: No murmur heard. No friction rub. No gallop. Pulmonary: Effort: Pulmonary effort is normal. No respiratory distress. Breath sounds: No stridor. No wheezing, rhonchi or rales. Chest: Chest wall: No tenderness. Abdominal: General: There is no distension. Palpations: Abdomen is soft. There is no mass. Tenderness: There is no abdominal tenderness. There is no right CVA tenderness or left CVA tenderness. Musculoskeletal: General: Normal range of motion. Cervical back: Normal range of motion. Neurological: General: No focal deficit present. Mental Status: She is alert and oriented to person, place, and time. Psychiatric: Mood and Affect: Mood normal. Assessment/Plan Assessment/Plan Diagnoses and all orders for this visit: Annual physical exam Comments: Normal cardiopulmonary exam Patient is to maintain a healthy and balanced diet. Orders: - CBC auto differential; Future - Comprehensive Metabolic Panel; Future - Lipid Panel, Standard; Future - TSH with Reflex to Free T4; Future - Hepatitis C Antibody with Reflex to HCV, RNA, Quantitative, Real-Time PCR; Future - HIV-1/2 Antigen and Antibodies, Fourth Generation, with Reflexes; Future Quijano's palsy Comments: Resolved To continue with the exercises. Call the office in case of recurrence. Encounter for immunization - TDAP VACCINE 7 yrs + - FLU VACCINE TRIVALENT [phone] (Fluarix) 6 mo + Screening for colon cancer - Referral to Gastroenterology; Future [1] There is no problem list on file for this patient. [2] No Known Allergies [3] Current Outpatient Medications on File Prior to Visit Medication Sig Dispense Refill [DISCONTINUED] dextran 70-hypromellose (artificial tears) 0.1-0.3 % ophthalmic solution Administer 1 drop into the left eye if needed in the morning, at noon, and at bedtime for dry eyes. 15 mL 1 [DISCONTINUED] fluticasone (Flonase) 50 MCG/ACT nasal spray Administer 1 spray into each nostril Once per day. 16 g 0 [DISCONTINUED] ibuprofen 600 MG tablet Take 1 tab orally tid prn pain or fevers 90 tablet 0 [DISCONTINUED] predniSONE (Deltasone) 10 MG tablet 3 tabs once a day x 3 days, 2 tabs once a day x 3 days, 1 tab once a day x 3 days. 20 tablet 0 [DISCONTINUED] pseudoephedrine (Sudafed) 30 MG tablet Take 1 tablet (30 mg) by mouth every 4 (four)hours if needed for congestion for up to 10 days. 30 tablet 0 No current facility-administered medications on file prior to visit. documented in this encounter Plan of Treatment Scheduled Orders Name Type Priority Associated Diagnoses Orde r Schedule CBC auto differential Lab Routine Annual physical exam Expected: 05/20/2025 (Approximate), Expires: 05/20/2026 Comprehensive Metabolic Panel Lab Routine Annual physical exam Expected: 05/20/2025 (Approximate), Expires: 05/20/2026 Lipid Panel, Standard Lab Routine Annual physical exam Expected: 05/20/2025 (Approximate), Expires: 05/20/2026 TSH with Reflex to Free T4 Lab Routine Annual physical exam Expected: 05/20/2025 (Approximate), Expires: 05/20/2026 Hepatitis C Antibody with Reflex to HCV, RNA, Quantitative, Real-Time PCR Lab Routine Annual physical exam Expected: 05/20/2025, Expires: 05/20/2026 HIV-1/2 Antigen and Antibodies, Fourth Generation, with Reflexes Lab Routine Annual physical exam Expected: 05/20/2025 (Approximate), Expires: 05/20/2026 Scheduled Referrals Name Type Priority Associated Diagnoses Order Schedule Referral to Gastroenterology Outpatient Referral Routine Screening for colon cancer Expected: 05/20/2025 (Approximate), Expires: 05/20/2026 documented as of this encounter Visit Diagnoses Diagnosis Annual physical exam- Primary Routine general medical examination at a health care facility Quijano's palsy Encounter for immunization Screening for colon cancer Special screening for malignant neoplasms, colon documented in this encounter Additional Health Concerns Assessment Noted Time PHQ-9 Depression Total Score: 2 05/20/20 25 2:12 PM EDT documented as of this encounter Care Teams Anesthesia Assistant Relationship Specialty Start Date End Date Teresa Hunt MD [address] [place] [address] PCP - General Internal Medicine 08/25/18 documented as of this encounter
--- OUTSIDE RECORDS SUMMARY | 2025-05-24 10:07 | XMS_ITS | Clinical Summary ---
Author Organization [employer] Address [address] [facility] [address] [place] [address] Care Team Providers Care Public Health Technician Name Role Phone Teresa Hunt MD Primary Care Provider [phone] Allergies No known active allergies Medications pseudoephedrin e (Sudafed) 30 MG tablet Take 1 tablet (30 mg) by mouth every 4 (four) hours if needed for congestion for up to 10 days. 30 tablet 4 05/20/20 25 Discontinu ed(Therapy completed) fluticasone (Flonase) 50 MCG/ACT nasal spray Administer 1 spray into each nostril Once per day. 16 g 4 05/20/20 Discontinu ed(Therapy completed) ibuprofen 600 MG tablet Take 1 tab orally tid prn pain or fevers 90 tablet 4 05/20/20 25 Discontinu ed(Therapy completed) predniSONE (Deltasone) 10 MG tabletIndicati ons:Quijano's palsy 3 tabs once a day x 3 days, 2 tabs once a day x 3 days, 1 tab once a day x 3 days. 20 tablet 5 05/20/20 Discontinu ed(Therapy completed) dextran 70-hypromellos e (artificial tears) 0.1-0.3 % ophthalmic solutionIndica tions:Quijano's palsy Administer 1 drop into the left eye if needed in the morning, at noon, and at bedtime for dry eyes. 15 mL 1 5 05/20/20 25 Discontinu ed(Therapy completed) Active Problems No known active problems Encounters Date Type Department Care Team Description 05/20/2025 2:00 PM EDT Office Visit [facility] CH[facility] MED & PEDS [address] [place] [address] Teresa Hunt MD Annual physical exam (Primary Dx); Quijano's palsy; Encounter for immunization; Screening for colon cancer 05/20/2025 Travel 05/12/2025 Patient Outreach [facility] MEDICINE [address] [place] [phone] Teresa Hunt MD Pre-visit Planning (Pre visit planning LVM ) 03/22/2025 Patient Outreach [facility] MEDICINE [address] [place] [address] Teresa Hunt MD Pre-visit Planning (SDOH screening negative and Tobacco screening negative) from Last 3 Months Immunizations Immunization Administration Dates Next Due Influenza, seasonal, injectable, preservative fr ee 05/20/2025 Tdap 05/20/2025 Family History Medical History Relation Name Comments Diabetes Father Hypertension Sister Relation Name Status Comments Father Sister Social History Tobacco Use Types Packs/Day Years [...] 16 05/20/2025 1:56 PM EDT Oxygen Saturation 100% 12/24/2024 3:50 PM EDT Inhaled Oxygen Concentration - - Weight 59 kg (130 lb) 05/20/2025 1:56 PM EDT Height 162.3 cm (5' 3.88 ) 05/20/2025 1:56 PM ED T Body Mass Index 22.4 05/20/2025 1:56 PM EDT Plan of Treatment Health Maintenance Due Date Last Done Comments CT Colonography 1967 Colonoscopy 1967 Colorectal Cancer Screening 1967 FIT DNA/Cologuard 1967 FIT 1967 FOBT 1967 HIV Screening 1965 Sigmoidoscopy 1967 Hepatitis C Screening 10/26/1985 Pneumococcal Vaccine: 50+ Years (1 of 1 - PCV) 10/26/2017 Zoster Vaccines (1 of 2) 10/26/2017 COVID-19 Vaccine ( season) 2025 09/04/2021, 01/02/2021, 12/12/2020 Pap Smear 09/10/2025 09/10/2022, 08/25, 06/25/2016 SDOH Screening 03/22/2026 03/22/2025 Alcohol/Substance Use Screening 05/20/2026 05/20/2025 Depression Screening 05/20/2026 05/20/2025, 05/20/20 25 Disability Screening 05/20/2026 05/20/2025 Tobacco Screening 05/20/2026 05/20/2025 Mammogram 09/20/2026 09/20/2024, 09/26, 09/15/2023, Additional history exists Cervical Cancer Screening 09/10/2027 HPV/Cotest 09/10/2027 09/10/2022, 08/25, 06/25/2016 DTaP/Tdap/Td Vaccines (3 - Td or Tdap) 05/20/2035 05/20/2025, 02/15/2013 RSV Patients and Patients Aged 60 years or older (1 - 1-dose 75+ series) 10/26/2042 Hepatitis B Vaccines Completed 06/25/2016, 01/17/2016, 12/18/2015 Influenza Vaccine Completed 05/20/2025, , 05/23/2014, Additional history exists HIB Vaccines Aged Out No longer eligi [...] patient's age to complete this topic Meningococcal B Vaccine Aged Out No l onger eligible based on patient's age to complete [...] AM EST Narrative 09/28/2024 3:42 PM EST [facility] [address] [place] [address] Mammography Report Signed Patient: Amira Craig MR#: [id number] : 1965 Acct:[id number] Age/Sex: 58 / F ADM Date: 09/20/24 Loc: HO.MAMMO Attending Dr: Teresa Hunt MD Ordering Physician: Teresa Hunt MD Results: 1 Negative Date of Service: 09/20/24 Follow Up: 1 Year From Orig ina Mammogram Procedure(s): MM tomosynthesis screening BI Accession Number(s): [id number] cc: Teresa Hunt MD EXAMINATION: MM SCREENING [...] 09/28/24 1539 DD/ 1000 TD/TT: 09/20/24 1020 Emergency Services Professional: Procedure Note Donotuseinterpreter, Image - 09/28/2024 [facility] [address] [place] [address] Dr. [place], [place] [address] Mammography Report Signed Patient: Amira CraigMR#: [id number] : 1965Acct:[id number] Age/Sex: 58 / FADM Date: 09/20/24 Loc: HO.MAMMO Attending Dr: Teresa Hunt MD Ordering Physician: Teresa Hunt MDResults: 1 Negative Date of Service: 09/20/24Follow Up: 1 Year From Orig ina Mammogram Procedure(s): MM tomosynthesis screening BI Accession Number(s): [id number] cc: Teresa Hunt MD EXAMINATION: MM SCREENING [...] Alyssa Fabian DO 09/28/2024 03:39 PM EST RP Dictated By: Alyssa Fabian DO Signed By: <Electronically signed by Alyssa Fabian DO in OV> 09/28/24 1539 DD/ 1000 TD/TT: 09/20/24 1020 Emergency Services Professional: us Teresa Hunt MD IMG BI PROCEDURES Final Res ult * Thinprep PAP and HPV nRNA E6/E7 (09/10/2022 12:00 AM EST) Clinical Information: POSSIBLE UTERINE DIDELPHYS, ANTERI [facility] LMP: NONE GIVEN [facility] Prev. PAP: NONE GIVEN [facility] Prev. BX: NONE GIVEN [facility] SOURCE: None given [facility] Statement Of Adequacy: [facility] Comment: Satisfactory for evaluation. Endocervical/transformation zone component present. Age and/or menstrual status not provided Interpretation/ Result: Negative for intraepithelial lesion or malignancy. [facility] Cytotechnologis t: [facility] Comment: KN, CT(ASCP) CT screening location: [place] [address] Review Cytotechnologis t: [facility] Comment: WAC, CT(ASCP) CT screening location: [place] [address] (Always Message) [facility] Comment: EXPLANATORY NOTE: The Pap is a [...] HPV nRNA E6/E7 Not Detected Not Detected [facility] Comment: Methodology: Filter Changing Technician-Mediated Amplification This assay detects E6/E7 viral messenger RNA (mRNA) from 14 high-risk HPV types (16,18,31,33,35,39,45,51,52,56,58,59,66,68). Cervical sources are required for HPV testing. If a vaginal source from a patient who has had a total hysterectomy with removal of cervix was submitted, please contact the testing laboratory for alternative testing options. For additional information, please refer to http://education.Carena/faq/ADP512f6 (This link if provided for information/ educational purposes only.) 09/10/2022 09/11/2022 2:1 7 AM EST Narrative [facility] - 09/18/2022 10:38 AM EST FASTING: UNKNOWN Ja[facility] PATHOLOGY ORDERABLES Final Result [facility] [address], [place] [address] [facility] [address], ([address]) [place] [address] from Last 3 Months or Most Recently Relevant to Health Maintenance Insurance [employer] 3 Care Teams Public Health Technician Relationship Specialty Start Date End Date Teresa Hunt MD [address] [place] [id number] PCP - General Internal Medicine 08/25/18
--- OUTSIDE RECORDS SUMMARY | 2025-05-24 10:07 | XMS_ITS | Encounter Summary ---
Author Organization [employer] Address [address] [facility] 7 [place] [address] Care Team Providers Care Machine Fastener Name Role Phone Teresa Hunt MD Primary Care Provider [phone] Reason for Visit * Reason Onset Date Comments Referral 01/25/2025 Encounter Details Date Type Department Care Team (Late st Contact Info) Description 01/25/2025 Telephone [facility] [address] [place] [address] Teresa Hunt MD [address] [place], [place] [phone] Referral Social History Tobacco Use Types Packs/Day Years Used Date Smoking Tobacco: Unknown Comments Unknown Sex and Gender Information Value Date Recorded Sex Assigned at Female 06/24/2022 10:20 AM EDT Legal Sex Female 10:20 AM EDT Gender Identity Female 06/24/2022 10:20 AM EDT Sexual Orientation Choose not to disclose 2021 10:20 AM EDT documented as of this encounter Miscellaneous Notes * Telephone Encounter - Tess Pruitt RN - 01/25/2025 10:20 AM EDT TC to [facility]. Spoke with [place]. Stated that area of body needs to be specified in the referral. For example, if the weakness the pt is experiencing is in her legs the referral should be placed to physical therapy. If it is a concern about weakness from elbow to finger tips, the referral shouldgo to occupational therapy. Author stated will inform provider. * Telephone Encounter - Jeannetteda Nickolas - 01/25/2025 8:57 AM EDT Telephone call received from Clarisse at [facility] reporting that the patient referral for physical therapy, submitted with the diagnosis of Quijano???s palsy, requires clarification. Specifically, a more specific diagnosis and the affected body part must be clearly identified. Patient is scheduled to be seen on January 28, 2025, and the referral is urgently needed via fax as soon as possible. documented in this encounter Plan of Treatment Not on file documented as of this encounter Visit Diagnoses Not on filedocumented in this encounter Care Teams Machine Fastener Relationship Specialty Start Date End Date Teresa Hunt MD [address] [place] [address] PCP - General Internal Medicine 08/25/18 documented as of this encounter
--- OUTSIDE RECORDS SUMMARY | 2025-05-24 10:07 | XMS_ITS | Encounter Summary ---
Author Organization [employer] Address [address] [place] [address] [place] [address] Care Team Providers Care Primary Counselor Name Role Phone Teresa Hunt MD Primary Care Provider [phone] Reason for Referral * Consultation (Routine) - Closed Specialty Diagnoses / Procedures Referred By Donna camargo Referred To Contact Physical Therapy Diagnoses Acute muscle weakness Teresa Hunt MD [address] [place] [address] Phone: tel: fax: Referral ID Status Reason Start Date Expiration Date V isits Requested Visits Authorized [id number] Closed Specialty Services Required 01/10/2025 01/10/2026 1 1 * Consultation (Routine) - Closed Specialty Diagnoses / Procedures Referred By Donna camargo Referred To Contact Physical Therapy Diagnoses Quijano's palsy Teresa Hunt MD [address] [place] [address] Phone: tel: fax: [facility] Physical Therapy [address] [place] [address] Phone: tel: fax: Referral ID Status Reason Start Date Expiration Date V isits Requested Visits Authorized [id number] Closed Specialty Services Required 01/04/2025 01/04/2026 1 1 Encounter Details Date Type Department Care Team (Late st Contact Info) Description 01/04/2025 Orders Only [facility] MED & PEDS [address] [place] [address] Teresa Hunt MD [address] [place] [address] Quijano's palsy (Primary Dx); Acute muscle weakness Social History Tobacco Use Types Packs/Day Years Used Date Smoking Tobacco: Unknown Comments Unknown Sex and Gender Information Value Date Recorded Sex Assigned at Female 06/24/2022 10:20 AM EDT Legal Sex Female 10:20 AM EDT Gender Identity Female 06/24/2022 10:20 AM EDT Sexual Orientation Choose not to disclose 2021 10:20 AM EDT documented as of this encounter Plan of Treatment Scheduled Referrals Name Type Priority Associated Diagnoses Orde r Schedule Referral to Physical Therapy Outpatient Referral Routine Quijano's palsy Expected: 01/04/2025 (Approximate), Expires: 01/04/2026 Referral to Physical Therapy Outpatient Referral Routine Acute muscle weakness Expected: 01/10/2025 (Approximate), Expires: 01/10/2026 documented as of this encounter Visit Diagnoses Diagnosis Quijano's palsy- Primary Acute muscle weakness documented in this encounter Care Teams Primary Counselor Relationship Specialty Start Date End Date Teresa Hunt MD [address] [place] [address] PCP - General Internal Medicine 08/25/18 documented as of this encounter
--- OUTSIDE RECORDS SUMMARY | 2025-05-24 10:07 | XMS_ITS | Encounter Summary ---
Author Organization [employer] [facility] Address [address] [facility] [address] [place] [address] Care Team Providers Care Campus President Name Role Phone Teresa Hunt MD Primary Care Provider [phone] Encounter Details Date Type Department Care Team (Late st Contact Info) Description 09/23/2022 Orders Only [facility] MEDICINE [address] [place] [address] Vicki Martinez, RN [address] [place] [address] Social History Tobacco Use Types Packs/Day Years [...] on filedocumented in this encounter Care Teams Campus President Relationship Specialty Start Date End Date Teresa Hunt MD [address] [place] [address] PCP - General Internal Medicine 08/25/18 documented as of this encounter
--- OUTSIDE RECORDS SUMMARY | 2025-05-24 10:08 | XMS_ITS | Encounter Summary ---
Author Organization [employer] Address [address] [facility] [address] [place] [address] Care Team Providers Care Paving Supervisor Name Role Phone Teresa Hunt MD Primary Care Provider [phone] Encounter Details Date Type Department Care Team (Latest Contact Info) Description 05/20/2025 Travel Social History Tobacco Use Types Packs/Day Years Used Date Smoking Tobacco: Never Passive Smoke Exposure: Never Smokeless Tobacco: Never Depression Answer Date Recorded Patient Health Questionnaire-9 [...] AM EDT documented as of this encounter Functional Status * Over the [...] 2:12 PM EDT Elsy Nance MA * Thoughts that you [...] C[place] documented as of this encounter Plan of Treatment Not on file documented as of this encounter Visit Diagnoses Not on filedocumented in this encounter Additional Health Concerns Assessment Noted Time PHQ-9 Depression Total Score: 2 05/20/20 25 2:12 PM EDT documented as of this encounter Care Teams Paving Supervisor Relationship Specialty Start Date End Date Teresa Hunt MD [address] [place], [place] [address] [address] PCP - General Internal Medicine 08/25/18 documented as of this encounter
--- OUTSIDE RECORDS SUMMARY | 2025-05-24 10:08 | XMS_ITS | Encounter Summary ---
Author Organization [email or web address] Address [address] [place] [address] Care Team Providers Care Director [employer] Name Role Phone Teresa Hunt MD Primary Care Provider [phone] Reason for Referral * Consultation (Routine) - Canceled Specialty Diagnoses / Procedures Referred By Donna camargo Referred To Contact Physical Therapy Diagnoses Quijano's palsy Teresa Hunt MD [address] [place] [address] Phone: tel: fax: Referral ID Status Reason Start Date Expiration Date Visits Requested Visits Authorized [id number] Canceled Specialty Services Required 01/25/2025 01/25/2026 1 1 Encounter Details Date Type Department Care Team (Late st Contact Info) Description 01/25/2025 Orders Only [facility] MED & PEDS [address] [place] [id number] Teresa Hunt MD [address] [place] [address] Quijano's palsy (Primary Dx) Social History Tobacco Use Types Packs/Day Years [...] Therapy Outpatient Referral Routine Quijano's palsy Expected: 01/25/2025 (Approximate), Expires: 01/25/2026 documented as of this encounter Visit Diagnoses Diagnosis Quijano's palsy- Primary documented in this encounter Care Teams Director Food And Beverage Relationship Specialty Start Date End Date Teresa Hunt MD [address] [place] [id number] PCP - General Internal Medicine 08/25/18 documented as of this encounter
[2025-05-24 14:14] LABS: MANUAL DIFF FLAG NO
[2025-05-24 14:18] LABS: Hematocrit 41.7 % (37.0-47.0); Hemoglobin 14.1 g/dl (12.0-16.0); Imm Gran Abs Auto 0.01 X10*3/uL (0.00-0.03); Imm Gran Pct Auto 0.3 % (0.0-0.4); Lymphocytes Absolute Auto 0.8 X10*3/uL (1.2-4.9); Mean Corpuscular HGB Conc 33.8 g/dl (31.0-35.0); Mean Corpuscular Hemoglobin 29.7 pg (27.0-33.0); Mean Corpuscular Volume 88.0 fL (80.0-98.0); NRBC Abs Auto 0.000 X10*3/uL (0.0-0.012); NRBC Pct Auto 0.0 /100WBC (0.0-0.2); Platelet Count 210 X10*3/uL (160-400); Red Blood Count 4.74 X10*6/uL (4.20-5.50); White Blood Count 3.1 X10*3/uL (4.8-10.8)
[2025-05-24 15:16] LABS: Alanine Aminotransferase 52 U/L (0-31); Albumin Level 4.2 g/dL (3.5-5.0); Alkaline Phosphatase 90 U/L (39-117); Anion Gap 9 (12-20); Aspartate Amino Transferase 46 U/L (5-31); Blood Urea Nitrogen 16 mg/dL (9-16); Calcium 9.0 mg/dL (8.4-10.2); Carbon Dioxide 29 mmol/L (22-29); Chloride 108 mmol/L (96-108); Cholesterol 189 mg/dL (<200); Estimated Glomerular Filt Rate > 60; Potassium 4.8 mmol/L (3.3-5.1); Sodium 141 mmol/L (135-145); Total Protein 7.2 g/dL (6.5-8.0); Triglycerides 105 mg/dL (<150)
[2025-05-24 15:31] LABS: HDL Cholesterol 43 mg/dL (>40)
[2025-05-25 05:08] LABS: HIV Num 1 0.05 S/CO (0.00-0.99); ~HepC Num1 0.13 S/CO (0.00-0.79); ~Hepatitis C Antibody Nonreactive (Nonreactive)
== END 2025-05-24 09:20 | disposition home or self-care (01) ==
LOC: HO.CHCLDS 09:19
PROVIDERS: Visit Provider Internal Medicine
DX: Z00.00 Encounter for general adult medical examination without abnormal findings (principal); Z11.4 Encounter for screening for human immunodeficiency virus [HIV]; Z11.59 Encounter for screening for other viral diseases
CPT/HCPCS: 36415; 80053; 80061; 84443; 85025; 86803; 87389